=== PATIENT | male | born 1930 | race Hispanic/Latino ===

== ENCOUNTER 2018-05-18 17:30 | Inpatient (IN) | payer MEDICARE ==
[2018-05-18] MEDS ORDERED: Sodium Chloride 0.9% 1,000 ML IV STA (18:22)
[2018-05-18] MEDS ORDERED: Iohexol 300 100 ML IJ ONE (18:27)
[2018-05-18] MEDS ORDERED: Sodium Chloride 0.9% 50 ML IV ONE (18:27)
--- NOTE | 2018-05-18 18:33 | ED PDOC ---
HPI: General Adult Time Seen by Provider: 05/18/18 17:43 Chief Complaint (Nursing): Weakness/Neurological Deficit Chief Complaint (Provider): Weight Loss History Per: Family History/Exam Limitations: no limitations Onset/Duration Of Symptoms: Days Current Symptoms Are (Timing): Still Present Additional Complaint(s): 87 y/o male with a PMHx of Arthritis accompanied by daughter brought in via EMS for evaluation of weight loss over the last couple months. Daughter reports patient was previously living at a [facility] in [place] where he fell on 04/24/2018 sustaining injuries to his hips, right side of his head, right hand and right eye. Patient has not walked since fall. Daughter states patient was not being offered the best care at that facility and had a decreased appetite. Daughter reports patient is relocating to the area for better care and to be close to her. Daughter states patient is eating less and less and has increasingly been become more and more confused. Patient reports of feeling constipated and feeling pain everywhere. However, patient reports pain is not new. Daughter reports last bowel movement was earlier today and appeared very dark. Of note, patient was seen by his PMD in [place] last week. PMD: none here. Current PMD in [place]. Past Medical History Reviewed: Historical Data, Nursing Documentation, Vital Signs Vital Signs: Last Vital Signs Temp 97.2 F L 05/18/18 17:34 Pulse 96 H 05/18/18 17:34 Resp 16 05/18/18 17:34 BP 114/74 05/18/18 17:34 Pulse Ox 97 05/18/18 17:34 - Medical History PMH: Arthritis, Chronic Pain - Surgical History Other surgeries: Hip surgery, Quadruple bypass - Family History Family History: States: Unknown Family Hx - Living Arrangements Living Arrangements: [facility] - Home Medications Home Medications: Ambulatory Orders Medication Instructions Recorded Ascorbic Acid [Vitamin C] 500 mg PO HS 05/19/18 Ferrous Sulfate [Feosol] 324 mg PO HS 05/19/18 Folic Acid 1 cap PO DAILY 05/19/18 Heparin 5,000 units SC Q12 vial 05/19/18 Lactulose [Enulose] 30 gm PO Q12 udc 05/19/18 Oxycodone HCl/Acetaminophen 1 each PO BID PRN 05/19/18 [Percocet 10-325 mg Tablet] Tamsulosin [Flomax] 1 cap PO HS 05/19/18 levETIRAcetam [Keppra] PO DAILY 05/19/18 traZODone [Desyrel] PO HS 05/19/18 - Allergies Allergies/Adverse Reactions: Allergies Allergy/AdvReac Type Severity Reaction Status Date / Time No Known Allergies Allergy Verified 05/18/18 17:38 Review of Systems ROS Statement: Except As Marked, All Systems Reviewed And Found Negative Constitutional: Positive for: Weight loss Gastrointestinal: Positive for: Constipation, Melena, Other (decreased appetite) Physical Exam - Reviewed Nursing Documentation Reviewed: Yes Vital Signs Reviewed: Yes - Physical Exam Appears: Positive for: No Acute Distress (cacchetic) Head Exam: Positive for: ATRAUMATIC Skin: Positive for: Normal Color, Warm Eye Exam: Positive for: Normal appearance Neck: Positive for: Normal, Painless ROM Cardiovascular/Chest: Negative for: Bradycardia, Tachycardia Respiratory: Negative for: Accessory Muscle Use, Respiratory Distress Gastrointestinal/Abdominal: Positive for: Tenderness (Bilateral lower quadrant tenderness) Extremity: Positive for: Normal ROM Neurologic/Psych: Positive for: Alert, Oriented (x1). Negative for: Motor/Sensory Deficits - Laboratory Results Result Diagrams: 05/22/18 04:20 05/22/18 04:20 - ECG O2 Sat by Pulse Oximetry: 97 (RA) Pulse Ox Interpretation: Normal Medical Decision Making Medical Decision Making: Time: 1821 Plan: -- CT Abd/Pelvis IV Contrast ONLY -- EKG -- CMP -- Lipase -- ED Urine Dipstick -- CBC with Differential -- PTT -- Prothrombin Time -- CXR Portable -- Sodium Chloride IV 90 mls/hr -- Glucose, Blood, POC -- Occult Blood, Stool, ER -- Urinalysis Scribe Attestation: Documented by Rebeka Xie, acting as a scribe for Haylie Bruner MD. Provider Scribe Attestation: All medical record entries made by the Scribe were at my direction and personally dictated by me. I have reviewed the chart and agree that the record accurately reflects my personal performance of the history, physical exam, medical decision making, and the department course for this patient. I have also personally directed, reviewed, and agree with the discharge instructions and di sposition. Disposition - Clinical Impression Clinical Impression: UTI (urinary tract infection), ARF (acute renal failure), Dehydration, Hyperkalemia, Compression fracture of lumbar vertebra - Disposition Disposition: Transfer of Care Disposition Time: 19:00 Condition: STABLE Patient Signed Over To: Augustin Cameron
[2018-05-18] MEDS ORDERED: Povidone Iodine Oint 10% Foilpak UD ONE (18:48)
[2018-05-18 19:07] LABS: BASO % 0.3 % (0.0-2.0); EOS # 0.1 K/uL (0.0-0.7); EOS % 0.6 % (0.0-4.0); HEMOGLOBIN 9.5 g/dL (12.0-18.0); LYMPH # 2.4 K/uL (1.0-4.3); LYMPH % 25.3 % (20.0-40.0); MEAN CELL VOLUME 92.3 fl (80.0-94.0); MEAN CORPUSCULAR HEMOGLOBIN 30.4 pg (27.0-31.0); MEAN CORPUSCULAR HGB CONC 32.9 g/dL (33.0-37.0); MEAN PLATELET VOLUME 6.8 fl (7.2-11.7); MONO # 0.9 K/uL (0.0-0.8); MONO % 9.7 % (0.0-10.0); NEUT # 6.2 K/uL (1.8-7.0); NEUT % 64.1 % (50.0-75.0); RBC 3.14 Mil/uL (4.40-5.90); WHITE BLOOD COUNT 9.7 K/uL (4.8-10.8)
[2018-05-18 19:20] LABS: SQUAMOUS EPITHIAL 1 /hpf (0-5); URINE BILIRUBIN NEGATIVE (NEGATIVE); URINE BLOOD SMALL (NEGATIVE); URINE CLARITY TURBID (Clear); URINE COLOR AMBER (YELLOW); URINE GLUCOSE (UA) NEG (NEGATIVE); URINE LEUKOCYTE ESTERASE LARGE Leu/uL (Negative); URINE PROTEIN 100 mg/dL (NEGATIVE); URINE UROBILINOGEN 0.2-1.0 mg/dL (0.2-1.0)
[2018-05-18 19:21] LABS: INR 1.1
[2018-05-18 19:22] LABS: CALCIUM 9.4 mg/dL (8.4-10.2)
[2018-05-18 19:27] LABS: PARTIAL THROMBOPLASTIN TIME 35.5 Seconds (25.6-37.1)
--- NOTE | 2018-05-18 19:30 | ED PDOC ---
- Laboratory Results Result Diagrams: 05/18/18 19:03 05/18/18 19:03 Lab Results: PT 12.0 Seconds (9.8-13.1) 05/18/18 19:03 INR 1.1 05/18/18 19:03 APTT 35.5 Seconds (25.6-37.1) 05/18/18 19:03 Total Bilirubin 0.3 mg/dl (0.2-1.3) 05/18/18 19:03 AST 26 U/L (17-59) 05/18/18 19:03 ALT 16 U/L (21-72) L 05/18/18 19:03 Alkaline Phosphatase 134 U/L (38-126) H 05/18/18 19:03 Total Protein 7.9 G/DL (6.3-8.2) 05/18/18 19: Albumin 4.0 g/dL (3.5-5.0) 05/18/18 19: Globulin 3.8 gm/dL (2.2-3.9) 05/18/18 19:03 Albumin/Globulin Ratio 1.0 (1.0-2.1) 05/18/18 19: Lipase 59 U/L (23-300) 05/18/18 19:03 Urine Color [place] (YELLOW) 05/18/18 19:03 Urine Clarity Turbid (Clear) 05/18/18 19:03 Urine pH 6.0 (5.0-8.0) 05/18/18 19:03 Ur Specific [place] 1.018 (1.003-1.030) 05/18/18 19:03 Urine Protein 100 mg/dL (NEGATIVE) 05/18/18 19:03 Urine Glucose (UA) Neg mg/dL (NEGATIVE) 05/18/18 19:03 Urine Ketones Trace mg/dL (NEGATIVE) 05/18/18 19:03 Urine Blood Small (NEGATIVE) 05/18/18 19:03 Urine Nitrate Negative (NEGATIVE) 05/18/18 19: Urine Bilirubin Negative (NEGATIVE) 05/18/18 19:03 Urine Urobilinogen 0.2-1.0 mg/dL (0.2-1.0) 05/18/18 19:03 Ur Leukocyte Esterase Large [place]/uL (Negative) 05/18/18 19:03 Urine RBC (Auto) 18 /hpf (0-3) H 05/18/18 19:03 Urine Microscopic WBC 805 /hpf (0-5) H 05/18/18 19:03 Ur Squamous Epith Cells 1 /hpf (0-5) 05/18/18 19:03 - ECG O2 Sat by Pulse Oximetry: 99 (RA) Pulse Ox Interpretation: Normal Medical Decision Making Medical Decision Making: Time: 1899 -- Patient endorsed to me by Dr. Bruner, pending labs, CT Abd/Pelvis, re- evaluation and final ER disposition. Time: 1943 Plan: -- cefTRIAXone 1 gm in NS (100 ml) Rocephin 1 gm Sodium Chloride 0.9% 100 ml IVPB -- Blood Culture -- Urine Culture Time: 2107 CT RESULTS COMMENTS: The liver is of uniform attenuation without mass or defect. There is no intra or extrahepatic biliary ductal dilatation. The spleen is normal. The gallb ladder is within normal limits. The pancreas is not well evaluated due to significant streak artifact. There is no evidence of adrenal mass. Diffuse vascular calcifications are present. The kidneys are normal in size, shape, and configuration. No renal or ureteral calculi are identified. There is no hydroureter or hydronephrosis. There are several cysts present in the right kidney measuring up to 15 mm. The appendix is not identified with certainty. No definite evidence of acute appendicitis. There is no bowel wall thickening. There is a large amount of fecal material seen throughout he colon, especially rectosigmoid, consistent with fecal impaction. No evidence for small or large bowel obstruction. There is no evidence of abdominal ascites or lymphadenopathy. The urinary bladder is not fully distended. There is apparent urinary bladder wall thickening measuring up to 6 mm, which may be due to bladder outlet obstruction versus cystitis. There is no pelvic ascites or lymphadenopathy. The prostate gland is severely enlarged, producing mass effect on the bladder base. Please correlate with PSA levels. The heart is enlarged. Patchy opacities are noted at the right lung base, which may represent developing pneumonia versus atelectasis. Scarring is seen in the right middle lobe and lingula. Images of the lung bases show no evidence of pleural or parenchymal mass. There are no pleural effusions. The patient is status post left femoral ORIF. Moderate degenerative changes are present at both hip joints. There is grade-1 anterolisthesis of L4 over L5. There is moderate anterior wedging compression fracture deformity noted involving L1 vertebral body. IMPRESSION: 1. Limited study as above. 2. Fecal impaction. 3. Several right renal cysts. 4. Urinary bladder outlet obstruction versus cystitis. 5. Severely enlarged prostate gland producing mass effect on the bladder base. Please correlate with PSA levels. 7. Cardiomegaly with possible right lung base developing pneumonia versus atelectasis and scarring in the right middle lobe and lingula. 8. Moderate anterior wedging compression fracture deformity involving L1 vertebral body. Electronically signed on May 18, 2018 9:07:08 PM EST by: Yury Edmond M.D., DARIUS Certified By [facility] [facility] Trained MRI and CT Specialist Scribe Attestation: Documented by Rebeka Xie, acting as a scribe for Augustin Cameron MD. Provider Scribe Attestation: All medical record entries made by the Scribe were at my direction and personally dictated by me. I have reviewed the chart and agree that the record accurately reflects my personal performance of the history, physical exam, medic al decision making, and the department course for this patient. I have also personally directed, reviewed, and agree with the discharge instructions and disposition. Disposition Discussed With Dr.: Del Rodriguez Doctor Will See Patient In The: Hospital Counseled Patient/Family Regarding: Studies Performed, Diagnosis - Clinical Impression Clinical Impression: UTI (urinary tract infection), ARF (acute renal failure), Dehydration, Hyperkalemia, Compression fracture of lumbar vertebra - POA Present On Arrival: None - Disposition Disposition: Admitted as In-Patient Disposition Time: 22:29 Condition: FAIR
[2018-05-18] MEDS ORDERED: cefTRIAXone (Rocephin) 1 gm Inj ONE (20:57)
[2018-05-18] MEDS ORDERED: Dextrose 50% SYRINGE Inj (50 ml) IVP ONE (22:05)
[2018-05-18] MEDS ORDERED: Albuterol 0.083% Inhal Sol (2.5 mg/3 mL) UD INH STA (22:05)
[2018-05-18] MEDS ORDERED: Insulin Regular 100 units/ml IV STA (22:05)
[2018-05-18] MEDS ORDERED: Insulin Regular 100 units/ml ONE ×2 (22:24→22:27)
[2018-05-18] MEDS ORDERED: Dextrose 50% SYRINGE Inj (50 ml) ONE (22:24)
[2018-05-18] MEDS ORDERED: Albuterol 0.083% Inhal Sol (2.5 mg/3 mL) UD ONE (22:25)
[2018-05-19] MEDS: Sodium Chloride 0.9% 1,000 ML IV SCH ×2 (06:58→22:00)
[2018-05-19 07:46] LABS: HEMOGLOBIN 9.8 g/dL (12.0-18.0); MEAN CELL VOLUME 93.6 fl (80.0-94.0); MEAN CORPUSCULAR HEMOGLOBIN 30.2 pg (27.0-31.0); MEAN CORPUSCULAR HGB CONC 32.3 g/dL (33.0-37.0); RBC 3.25 Mil/uL (4.40-5.90); RED CELL DISTRIBUTION WIDTH 16.9 % (11.5-14.5); WHITE BLOOD COUNT 11.3 K/uL (4.8-10.8)
[2018-05-19 07:50] LABS: ALB/GLOB RATIO 1.1 (1.0-2.1); ALBUMIN 4.1 g/dL (3.5-5.0); CALCIUM 9.5 mg/dL (8.4-10.2)
--- NOTE | 2018-05-19 09:48 | CT ---
Date of service: 05/18/2018 PROCEDURE: CT HEAD WITHOUT CONTRAST. HISTORY: Recent [facility] follow up COMPARISON: None available. TECHNIQUE: Axial computed tomography images were obtained through the head/brain without intravenous contrast. Radiation dose: Total exam DLP = 1813.23 mGy-cm. This CT exam was performed using one or more of the following dose reduction techniques: Automated exposure control, adjustment of the mA and/or kV according to patient size, and/or use of iterative reconstruction technique. FINDINGS: HEMORRHAGE: There are large left and moderate right-sided bilateral hypodense subdural collections right-side which exhibits a higher density compared to the left. 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 The collections exert mass effect and compression of both cerebral hemispheres more so on the left side.. The mass effect produced by these collections are nearly offsetting with only minimal shift of the septum pellucidum from left to right BRAIN: Mild to moderate chronic periventricular white matter ischemic changes seen extending peripherally into the deep and subcortical white matter both cerebral hemispheres.. Additionally, there are scattered chronic appearing bilateral basal nuclei lacunar type infarcts. Moderate-fairly significant generalized volume loss Vascular calcifications both carotid siphons and left vertebral artery. VENTRICLES: No obstructive hydrocephalus. CALVARIUM: No acute calvarial fractures so far as can be seen PARANASAL SINUSES: Minor mucosal thickening seen within both maxillary antra MASTOID AIR CELLS: Unremarkable as visualized. No inflammatory changes. OTHER FINDINGS: Changes of bilateral cataract surgery. IMPRESSION: There are large left-sided and moderate right-sided hypodense subdural collections left-sided which exhibits more hypodense appearance likely more chronic than the right. These collections exert mild moderate mass-effect on both cerebral hemispheres with sulcal effacement... The mass effect produced by these collections is nearly offsetting with only minimal shift of the septum pellucidum from left to right. Moderate chronic white matter ischemic changes Moderate- significant generalized volume loss
--- NOTE | 2018-05-19 14:32 | CT ---
Date of service: 05/18/2018 PROCEDURE: CT Abdomen and Pelvis HISTORY: BLQ pain COMPARISON: None. TECHNIQUE: Contiguous axial images of the abdomen and pelvis performed without oral or intravenous contrast material. Additional 2D sagittal and coronal reformats generated. Radiation dose: Total exam DLP = 375.85 mGy-cm. This CT exam was performed using one or more of the following dose reduction techniques: Automated exposure control, adjustment of the mA and/or kV according to patient size, and/or use of iterative reconstruction technique. FINDINGS: Note that this examination is limited by the lack of oral and intravenous contrast material as well as significant paucity of intraperitoneal and retroperitoneal fat (cachexia).. Note that the study is further limited due to crossing streak and beam hardening artifact arising from the upper extremities which have not been moved from the field of view. LOWER THORAX: Heart is mildly enlarged. The cardiac apex appears to protrude anteriorly slightly through a left lower anterior intracostal space likely due to marked cachexia.. Follow-up contrast enhanced CT scan of the chest could be performed if further evaluation is required. There appears to be chronic manifestations of COPD. Mild chronic appearing interstitial changes right lung base as well as right middle lobe region. Minimal scarring left lingular region.. There is also a pleural based nodular density right posterior medial lung base measuring 13 mm. Follow-up CT scan of the chest further evaluation and to assess for additional nodules recommended LIVER: The liver is mildly enlarged measuring over 20 cm in CC dimension.. No obvious hepatic masses collections seen on this limited noncontrast exam. GALLBLADDER AND BILE DUCTS: Gallbladder appears moderately distended. No obvious intraluminal gallbladder calculi.. PANCREAS: Pancreas is poorly delineated on this exam. SPLEEN: Spleen appears borderline/mildly enlarged measuring approximately 13 cm in AP dimension. No obvious splenic mass or collection. ADRENALS: Adrenal glands poorly delineated KIDNEYS AND URETERS: Kidneys are poorly visualized however there does appear to be at least 2 partially exophytic cysts posterolateral aspect midpole right kidney. BLADDER: Urinary bladder is partially distended which in part accounts for mild thick-walled appearance. Muscular hypertrophy presumably contributes. Cystitis or other intrinsic/invasive wall lesion not excluded.. REPRODUCTIVE: Prostate gland measures approximately 5.7 cm in transverse dimension.. Findings likely due to BPH however correlation with PSA recommended. APPENDIX: Appendix is not seen with certainty on this study BOWEL: Evaluation of the bowel is limited due to marked paucity of intraperitoneal and retroperitoneal fat reducing inherent contrast detail. The stomach appears to be partially distended with food debris and air. The no evidence of acute mechanical bowel obstruction so far as can be seen. Large amount of stool seen throughout the colon particularly in the rectosigmoid region consistent with fecal impaction. The PERITONEUM: No gross fluid collections or free intraperitoneal air. LYMPH NODES: Evaluation for adenopathy quite limited.. VASCULATURE: Unremarkable. No aortic aneurysm. Mild aortic atherosclerotic calcification or mural plaque present. BONES: Chronic anterior wedge compression deformity of the L1 segment. The remaining vertebral bodies otherwise exhibit relatively normal stature. Slight anterior subluxation L4 over L5. Moderate multilevel degenerative spondylosis. There is a metallic compression screw traversing the left femoral neck which is stabilized by intramedullary fixation jazmyn left femur. OTHER FINDINGS: None. IMPRESSION: Very limited study the due to the lack of oral contrast material marked cachexia as well as crossing streak and beam hardening artifact arising from the upper extremities which have not been moved from the field of view. The apex of the heart appears to partially protrude anteriorly through an left anterior intercostal space likely due to marked cachexia.. Probable chronic manifestations of COPD. There is also a small approximately 13 mm pleural-based nodule right posteromedial lower lung field. Probable chronic manifestations of COPD. Recommend follow-up CT scan of the chest further evaluation. There are least 2 right-sided renal cysts as above. Wall thickening of the urinary bladder in part due to incomplete distention and muscular hypertrophy however cystitis or other intrinsic/invasive wall lesion not excluded. Follow-up with urinalysis recommended. Enlarged prostate gland likely due to BPH however correlation with PSA recommended. Hepatomegaly. Findings consistent with fecal impaction. This report was placed in [facility] review folder for follow up.
--- NOTE | 2018-05-19 16:14 | RAD ---
Date of service: 05/18/2018 HISTORY: FTT COMPARISON: No prior. FINDINGS: LUNGS: There appear to be chronic manifestations of COPD. No focal consolidation. PLEURA: No significant pleural effusion identified, no pneumothorax apparent. CARDIOVASCULAR: Mild aortic atherosclerotic calcification present. Heart appears mildly enlarged. No pulmonary vascular congestion. OSSEOUS STRUCTURES: Suspect old healed fracture deformities of the 5th and 6th ribs. VISUALIZED UPPER ABDOMEN: Normal. OTHER FINDINGS: None. IMPRESSION: There appear to be chronic manifestations of COPD. No focal consolidation. .
--- NOTE | 2018-05-19 16:19 | CP.PCM.CON ---
History of Present Illness - History of Present Illness History of Present Illness: Infectious Disease Consultation Note- asked to see this patient at the request of for ? UTI. HPI- history obtained from the patient's daughter who is at [facility]. Patient is a 87 year old male with h/o CAD s/p CABG many years ago and arthritis who was living at custodial home in [place] but apparently pt. had sustained falls there with injuries to his hip, right side of the head, arm and face and Patient has not walked since fall. Daughter states patient was not being offered the best care at that facility and had a decreased appetite. Daughter reports patient is relocating to the area for better care and to be close to her. Daughter states patient is eating less and less and has increasingly been become more and more confused. Patient reports of feeling constipated and feeling pain everywhere. However, patient reports pain is not new. as per patient's daughter pt. does have h/o osteoarthritis and had been on oxycodone for a while and has developed painful constipation as a sequeala of the pain meds and not drinking enough fluids . Pt. has not reported any dysurea or urinary frequencey. no fever or chills. I'm asked to see the patietn because he was noted to have pos LE on admission UA. Review of Systems - Review of Systems Review of Systems: ROS- denies any fever or chills, denies any cough or sob, denies any chets pain, denies any nausea or vomniting, + constipation chrnically and abdominal pian from the constipation denies any urinary frequency and denies any dysurea. Past Patient History - Past Medical History & Family History Past Medical History?: No - Past Social History Smoking Status: Former Smoker Home Situation {Lives}: Long-Term - CARDIAC Hx Cardiac Disorders: Yes Hx Hypertension: Yes Other/Comment: Open heart 4 years ago - PULMONARY Hx Respiratory Disorders: No - NEUROLOGICAL Hx Neurological Disorder: No - HEENT Hx HEENT Problems: No - RENAL Hx Chronic Kidney Disease: No - ENDOCRINE/METABOLIC Hx Endocrine Disorders: No - HEMATOLOGICAL/ONCOLOGICAL Hx Blood Disorders: No - INTEGUMENTARY Hx Dermatological Problems: No - MUSCULOSKELETAL/RHEUMATOLOGICAL Hx Musculoskeletal Disorders: Yes Hx Arthritis: Yes Hx Falls: Yes - GASTROINTESTINAL Hx Gastrointestinal Disorders: No - GENITOURINARY/GYNECOLOGICAL Hx Genitourinary Disorders: No - PSYCHIATRIC Hx Psychophysiologic Disorder: No Hx Substance Use: No - SURGICAL HISTORY Hx Surgeries: Yes Hx Open Heart Surgery: Yes - ANESTHESIA Hx Anesthesia: Yes Hx Anesthesia Reactions: No Hx Malignant Hyperthermia: No Has any member of the family had a problem w/ anesthesia?: No Meds Home Medications: Home Medication List Medication Instructions Recorded Confirmed Type Heparin 5,000 units SC Q12 vial 05/19/18 Rx Lactulose [Enulose] 30 gm PO Q12 udc 05/19/18 Rx Allergies/Adverse Reactions: Allergies Allergy/AdvReac Type Severity Reaction Status Date / Time No Known Allergies Allergy Verified 05/18/18 17:38 - Medications Medications: Current Medications Ascorbic Acid (Vitamin C 500 Mg Tab) 500 mg PO HS [facility] Ferrous Sulfate (Feosol) 325 mg PO HS [facility] Folic Acid (Folic Acid) 1 mg PO DAILY [facility] Last Admin: 05/19/18 09:06 Dose: 1 mg Sodium Chloride (Sodium Chloride 0.9%) 1,000 mls @ 100 mls/hr IV .Q10H [facility] Stop: 05/20/18 06:31 Last Admin: 05/19/18 06:58 Dose: 100 mls/hr Ceftriaxone Sodium 1 gm/ (Sodium Chloride) 100 mls @ 100 mls/hr IVPB Q12@0900,2100 [facility]; Protocol Last Admin: 05/19/18 09:10 Dose: 100 mls/hr Lactulose (Enulose) 20 gm PO Q12 [facility] Last Admin: 05/19/18 09:05 Dose: 20 gm Levetiracetam (Keppra) 250 mg PO DAILY [facility] Last Admin: 05/19/18 09:09 Dose: 250 mg Mirtazapine (Remeron) 15 mg PO HS [facility] Tamsulosin HCl (Flomax) 0.4 mg PO HS [facility] Physical Exam - Constitutional Appears: No Acute Distress, Cachectic, Chronically Ill - Eye Exam Eye Exam: EOMI, PERRL - ENT Exam Additional comments: dry oropharynx - Neck Exam Neck exam: Positive for: Full Rom - Respiratory Exam Respiratory Exam: Clear to Auscultation Bilateral, NORMAL BREATHING PATTERN - Cardiovascular Exam Cardiovascular Exam: RRR, +S1, +S2 - GI/Abdominal Exam GI & Abdominal Exam: Normal Bowel Sounds, Soft Additional comments: No distention + mild tenderness with palpation in the lower abdomen No guarding, no rebound - Extremities Exam Extremities exam: Positive for: normal inspection - Neurological Exam Neurological exam: Alert, Oriented x3 Results - Vital Signs Recent Vital Signs: Last Vital Signs Temp 97.6 F 05/19/18 16:07 Pulse 115 H 05/19/18 16:07 Resp 18 05/19/18 16:07 BP 92/63 L 05/19/18 16:07 Pulse Ox 98 05/19/18 16:07 - Labs Result Diagrams: 05/19/18 06:15 05/19/18 06:15 Labs: Laboratory Results - last 24 hr 05/18/18 05/18/18 05/18/18 18:32 19:03 19:03 WBC 9.7 RBC 3.14 L Hgb 9.5 L Hct 29.0 L MCV 92.3 MCH 30.4 MCHC 32.9 L RDW 17.0 H Plt Count 172 MPV 6.8 L Neut % (Auto) 64.1 Lymph % (Auto) 25.3 [place] % (Auto) 9.7 Eos % (Auto) 0.6 Baso % (Auto) 0.3 Neut # (Auto) 6.2 Lymph # (Auto) 2.4 [place] # (Auto) 0.9 H Eos # (Auto) 0.1 Baso # (Auto) 0.0 PT INR APTT Sodium 138 Potassium 5.7 H Chloride 101 Carbon Dioxide 24 Anion Gap 19 BUN 74 H Creatinine 1.9 H Est GFR ( Amer) 41 Est GFR (Non-Af Amer) 34 Random Glucose 104 Calcium 9.4 Total Bilirubin 0.3 AST 26 ALT 16 L Alkaline Phosphatase 134 H Total Protein 7.9 Albumin 4.0 Globulin 3.8 Albumin/Globulin Ratio 1.0 Lipase 59 Vitamin B12 TSH 3rd Generation Urine Color Urine Clarity Urine pH Ur Specific [place] Urine Protein Urine Glucose (UA) Urine Ketones Urine Blood Urine Nitrate Urine Bilirubin Urine Urobilinogen Ur Leukocyte Esterase Urine RBC (Auto) Urine Microscopic WBC Ur Squamous Epith Cells Stool Occult Blood Negative 05/18/18 05/18/18 05/19/18 19:03 19:03 06:15 WBC 11.3 H RBC 3.25 L Hgb 9.8 L Hct 30.4 L MCV 93.6 MCH 30.2 MCHC 32.3 L RDW 16.9 H Plt Count 187 MPV Neut % (Auto) Lymph % (Auto) [place] % (Auto) Eos % (Auto) Baso % (Auto) Neut # (Auto) Lymph # (Auto) [place] # (Auto) Eos # (Auto) Baso # (Auto) PT 12.0 INR 1.1 APTT 35.5 Sodium Potassium Chloride Carbon Dioxide Anion Gap BUN Creatinine Est GFR ( Amer) Est GFR (Non-Af Amer) Random Glucose Calcium Total Bilirubin AST ALT Alkaline Phosphatase Total Protein Albumin Globulin Albumin/Globulin Ratio Lipase Vitamin B12 TSH 3rd Generation Urine Color [place] Urine Clarity Turbid Urine pH 6.0 Ur Specific [place] 1.018 Urine Protein 100 Urine Glucose (UA) Neg Urine Ketones Trace Urine Blood Small Urine Nitrate Negative Urine Bilirubin Negative Urine Urobilinogen 0.2-1.0 Ur Leukocyte Esterase Large Urine RBC (Auto) 18 H Urine Microscopic WBC 805 H Ur Squamous Epith Cells 1 Stool Occult Blood 05/19/18 06:15 WBC RBC Hgb Hct MCV MCH MCHC RDW Plt Count MPV Neut % (Auto) Lymph % (Auto) [place] % (Auto) Eos % (Auto) Baso % (Auto) Neut # (Auto) Lymph # (Auto) [place] # (Auto) Eos # (Auto) Baso # (Auto) PT INR APTT Sodium 136 Potassium 5.4 H Chloride 102 Carbon Dioxide 22 Anion Gap 17 BUN 74 H Creatinine 1.7 H Est GFR ( Amer) 46 Est GFR (Non-Af Amer) 38 Random Glucose 119 H Calcium 9.5 Total Bilirubin 0.3 AST 23 ALT 18 L Alkaline Phosphatase 142 H Total Protein 7.9 Albumin 4.1 Globulin 3.8 Albumin/Globulin Ratio 1.1 Lipase Vitamin B12 620 TSH 3rd Generation 2.22 Urine Color Urine Clarity Urine pH Ur Specific [place] Urine Protein Urine Glucose (UA) Urine Ketones Urine Blood Urine Nitrate Urine Bilirubin Urine Urobilinogen Ur Leukocyte Esterase Urine RBC (Auto) Urine Microscopic WBC Ur Squamous Epith Cells Stool Occult Blood Microbiology 05/19/18 09:46 Urine,Catheterized Urine Culture - Preliminary Staphylococcus Aureus Assessment & Plan (1) Cachexia Status: Acute Priority: High (2) Dehydration Status: Acute Priority: Medium (3) Poor appetite Status: Acute Priority: High (4) UTI (urinary tract infection) Status: Acute Priority: Medium - Assessment and Plan (Free Text) Assessment: A/P- 87 year old male with CAD s/p CABG many years ago and arthritis presents with dehydration, poor appetite, wekaness s/p falls in [place] and subdural hematomas as per CT report . found to also have + UA with minimal leukocytosis. no UTI symptoms but as per CT report ? cystitis and enlarged prostate making prostatitis a possibility as well. afebrile contipation chronic. PLan- advise to continue with empiric ceftriaxone that was initiated bty the admitting doctor for UTI pending Urine cx result. check blood cx x2 as well. IV hydration as per PMD . constipation management as per PMD. All labs and pertinent chart notes and imaging reviewed. All above d/w patient and his daughter and they agree with above plan of care. Thank you for allowing me to take part in the care of this patient.
--- NOTE | 2018-05-19 16:22 | CP.PCM.HP ---
History of Present Illness - History of Present Illness History of Present Illness: CC: Poor Feeding and Loss of Weight History of present illness Daughter (POA) and son-in-law at the bedside, and reviewed the medical record from another hospital And 87 y/o male with a Hx of falls with bilateral subdural hematoma, left more than right which is present on admission; Arthritis and Cachexia accompanied by daughter brought in via EMS for evaluation of weight loss over the last couple months. Daughter reports patient was previously living at a [facility] in [place] where he fell on 04/24/2018 sustaining injuries to his hips, right side of his head, right hand and right eye. Patient has not walked since fall. Daughter states patient was not being offered the best care at that facility and had a decreased appetite. Daughter reports patient is relocating to the area for better care and to be close to her. Daughter states patient is eating less and less and has increasingly been become more and more confused. Patient reports of feeling constipated and feeling pain everywhere. However, patient reports pain is not new. Daughter reports last bowel movement was earlier today and appeared very dark. Of note, patient was seen by his PMD in [place] last week. Patient is on Keppra for seizure prophylaxis. Discussed the CODE STATUS with POA who wanted everything to be done including intubation and CPR. Present on Admission - Present on Admission Any Indicators Present on Admission: No Review of Systems - Review of Systems All systems: reviewed and no additional remarkable complaints except Review of Systems: As per HPI Past Patient History - Past Medical History & Family History Past Medical History?: No Past Family History: Reviewed and not pertinent - Past Social History Smoking Status: Former Smoker Alcohol: None Drugs: Denies - CARDIAC Hx Cardiac Disorders: Yes Hx Hypertension: Yes Other/Comment: Open heart 4 years ago - PULMONARY Hx Respiratory Disorders: No - NEUROLOGICAL Hx Neurological Disorder: No - HEENT Hx HEENT Problems: No - RENAL Hx Chronic Kidney Disease: No - ENDOCRINE/METABOLIC Hx Endocrine Disorders: No - HEMATOLOGICAL/ONCOLOGICAL Hx Blood Disorders: No - INTEGUMENTARY Hx Dermatological Problems: No - MUSCULOSKELETAL/RHEUMATOLOGICAL Hx Musculoskeletal Disorders: Yes Hx Arthritis: Yes Hx Falls: Yes - GASTROINTESTINAL Hx Gastrointestinal Disorders: No - GENITOURINARY/GYNECOLOGICAL Hx Genitourinary Disorders: No - PSYCHIATRIC Hx Psychophysiologic Disorder: No Hx Substance Use: No - SURGICAL HISTORY Hx Surgeries: Yes Hx Open Heart Surgery: Yes - ANESTHESIA Hx Anesthesia: Yes Hx Anesthesia Reactions: No Hx Malignant Hyperthermia: No Has any member of the family had a problem w/ anesthesia?: No Meds Home Medications: Home Medication List Medication Instructions Recorded Confirmed Type Heparin 5,000 units SC Q12 vial 05/19/18 Rx Lactulose [Enulose] 30 gm PO Q12 udc 05/19/18 Rx Allergies/Adverse Reactions: Allergies Allergy/AdvReac Type Severity Reaction Status Date / Time No Known Allergies Allergy Verified 05/18/18 17:38 Physical Exam - Constitutional Appears: Non-toxic, No Acute Distress, Agitated, Confused, Cachectic, Chronically Ill - Head Exam Head Exam: ATRAUMATIC, NORMAL INSPECTION, NORMOCEPHALIC - Eye Exam Eye Exam: EOMI, Normal appearance, PERRL Pupil Exam: NORMAL ACCOMODATION, PERRL - ENT Exam ENT Exam: Mucous Membranes Moist, Normal Exam - Neck Exam Neck exam: Positive for: Normal Inspection - Respiratory Exam Respiratory Exam: Clear to Auscultation Bilateral, NORMAL BREATHING PATTERN. absent: Rales - Cardiovascular Exam Cardiovascular Exam: REGULAR RHYTHM, +S1, +S2 - GI/Abdominal Exam GI & Abdominal Exam: Normal Bowel Sounds, Soft. absent: Tenderness - Extremities Exam Extremities exam: Positive for: normal capillary refill, normal inspection - Neurological Exam Neurological exam: Abnormal Gait, Alert, Motor Sensory Deficit, Normal Gait, Reflexes Normal - Psychiatric Exam Psychiatric exam: Flat Affect - Skin Skin Exam: Dry, Intact, Normal Color, Warm Results - Vital Signs Recent Vital Signs: Last Vital Signs Temp 97.6 F 05/19/18 16:07 Pulse 115 H 05/19/18 16:07 Resp 18 05/19/18 16:07 BP 92/63 L 05/19/18 16:07 Pulse Ox 98 05/19/18 16:07 - Labs Result Diagrams: 05/24/18 04:25 05/24/18 04:25 Labs: Laboratory Results - last 24 hr 05/18/18 05/18/18 05/18/18 18:32 19:03 19:03 WBC 9.7 RBC 3.14 L Hgb 9.5 L Hct 29.0 L MCV 92.3 MCH 30.4 MCHC 32.9 L RDW 17.0 H Plt Count 172 MPV 6.8 L Neut % (Auto) 64.1 Lymph % (Auto) 25.3 [place] % (Auto) 9.7 Eos % (Auto) 0.6 Baso % (Auto) 0.3 Neut # (Auto) 6.2 Lymph # (Auto) 2.4 [place] # (Auto) 0.9 H Eos # (Auto) 0.1 Baso # (Auto) 0.0 PT INR APTT Sodium 138 Potassium 5.7 H Chloride 101 Carbon Dioxide 24 Anion Gap 19 BUN 74 H Creatinine 1.9 H Est GFR ( Amer) 41 Est GFR (Non-Af Amer) 34 Random Glucose 104 Calcium 9.4 Total Bilirubin 0.3 AST 26 ALT 16 L Alkaline Phosphatase 134 H Total Protein 7.9 Albumin 4.0 Globulin 3.8 Albumin/Globulin Ratio 1.0 Lipase 59 Vitamin B12 TSH 3rd Generation Urine Color Urine Clarity Urine pH Ur Specific [place] Urine Protein Urine Glucose (UA) Urine Ketones Urine Blood Urine Nitrate Urine Bilirubin Urine Urobilinogen Ur Leukocyte Esterase Urine RBC (Auto) Urine Microscopic WBC Ur Squamous Epith Cells Stool Occult Blood Negative 05/18/18 05/18/18 05/19/18 19:03 19:03 06:15 WBC 11.3 H RBC 3.25 L Hgb 9.8 L Hct 30.4 L MCV 93.6 MCH 30.2 MCHC 32.3 L RDW 16.9 H Plt Count 187 MPV Neut % (Auto) Lymph % (Auto) [place] % (Auto) Eos % (Auto) Baso % (Auto) Neut # (Auto) Lymph # (Auto) [place] # (Auto) Eos # (Auto) Baso # (Auto) PT 12.0 INR 1.1 APTT 35.5 Sodium Potassium Chloride Carbon Dioxide Anion Gap BUN Creatinine Est GFR ( Amer) Est GFR (Non-Af Amer) Random Glucose Calcium Total Bilirubin AST ALT Alkaline Phosphatase Total Protein Albumin Globulin Albumin/Globulin Ratio Lipase Vitamin B12 TSH 3rd Generation Urine Color [place] Urine Clarity Turbid Urine pH 6.0 Ur Specific [place] 1.018 Urine Protein 100 Urine Glucose (UA) Neg Urine Ketones Trace Urine Blood Small Urine Nitrate Negative Urine Bilirubin Negative Urine Urobilinogen 0.2-1.0 Ur Leukocyte Esterase Large Urine RBC (Auto) 18 H Urine Microscopic WBC 805 H Ur Squamous Epith Cells 1 Stool Occult Blood 05/19/18 06:15 WBC RBC Hgb Hct MCV MCH MCHC RDW Plt Count MPV Neut % (Auto) Lymph % (Auto) [place] % (Auto) Eos % (Auto) Baso % (Auto) Neut # (Auto) Lymph # (Auto) [place] # (Auto) Eos # (Auto) Baso # (Auto) PT INR APTT Sodium 136 Potassium 5.4 H Chloride 102 Carbon Dioxide 22 Anion Gap 17 BUN 74 H Creatinine 1.7 H Est GFR ( Amer) 46 Est GFR (Non-Af Amer) 38 Random Glucose 119 H Calcium 9.5 Total Bilirubin 0.3 AST 23 ALT 18 L Alkaline Phosphatase 142 H Total Protein 7.9 Albumin 4.1 Globulin 3.8 Albumin/Globulin Ratio 1.1 Lipase Vitamin B12 620 TSH 3rd Generation 2.22 Urine Color Urine Clarity Urine pH Ur Specific [place] Urine Protein Urine Glucose (UA) Urine Ketones Urine Blood Urine Nitrate Urine Bilirubin Urine Urobilinogen Ur Leukocyte Esterase Urine RBC (Auto) Urine Microscopic WBC Ur Squamous Epith Cells Stool Occult Blood - Imaging and Cardiology CT scan - head Status: Report reviewed by me Additional comment: Date of service: 05/18/2018 PROCEDURE: CT HEAD WITHOUT CONTRAST. HISTORY: Recent [facility] follow up COMPARISON: None available. TECHNIQUE: Axial computed tomography images were obtained through the head/brain without intravenous contrast. Radiation dose: Total exam DLP = 1813.23 mGy-cm. This CT exam was performed using one or more of the following dose reduction techniques: Automated exposure control, adjustment of the mA and/or kV according to patient size, and/or use of iterative reconstruction technique. FINDINGS: HEMORRHAGE: There are large left and moderate right-sided bilateral hypodense subdural collections right-side which exhibits a higher density compared to the left. 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 The collections exert mass effect and compression of both cerebral hemispheres more so on the left side.. The mass effect produced by these collections are nearly offsetting with only minimal shift of the septum pellucidum from left to right BRAIN: Mild to moderate chronic periventricular white matter ischemic changes seen extending peripherally into the deep and subcortical white matter both cerebral hemispheres.. Additionally, there are scattered chronic appearing bilateral basal nuclei lacunar type infarcts. Moderate-fairly significant generalized volume loss Vascular calcifications both carotid siphons and left vertebral artery. VENTRICLES: No obstructive hydrocephalus. CALVARIUM: No acute calvarial fractures so far as can be seen PARANASAL SINUSES: Minor mucosal thickening seen within both maxillary antra MASTOID AIR CELLS: Unremarkable as visualized. No inflammatory changes. OTHER FINDINGS: Changes of bilateral cataract surgery. IMPRESSION: There are large left-sided and moderate right-sided hypodense subdural collections left-sided which exhibits more hypodense appearance likely more chronic than the right. These collections exert mild moderate mass-effect on both cerebral hemispheres with sulcal effacement... The mass effect produced by these collections is nearly offsetting with only minimal shift of the septum pellucidum from left to right. Moderate chronic white matter ischemic changes Moderate- significant generalized volume loss Abdominal/Pelvic CT: Status: Report reviewed by me Additional comment: Date of service: 05/18/2018 PROCEDURE: CT Abdomen and Pelvis HISTORY: BLQ pain COMPARISON: None. TECHNIQUE: Contiguous axial images of the abdomen and pelvis performed without oral or intravenous contrast material. Additional 2D sagittal and coronal reformats generated. Radiation dose: Total exam DLP = 375.85 mGy-cm. This CT exam was performed using one or more of the following dose reduction techniques: Automated exposure control, adjustment of the mA and/or kV according to patient size, and/or use of iterative reconstruction technique. FINDINGS: Note that this examination is limited by the lack of oral and intravenous contrast material as well as significant paucity of intraperitoneal and retroperitoneal fat (cachexia).. Note that the study is further limited due to crossing streak and beam hardening artifact arising from the upper extremities which have not been moved from the field of view. LOWER THORAX: Heart is mildly enlarged. The cardiac apex appears to protrude anteriorly slightly through a left lower anterior intracostal space likely due to marked cachexia.. Follow-up contrast enhanced CT scan of the chest could be performed if further evaluation is required. There appears to be chronic manifestations of COPD. Mild chronic appearing interstitial changes right lung base as well as right middle lobe region. Minimal scarring left lingular region.. There is also a pleural based nodular density right posterior medial lung base measuring 13 mm. Follow-up CT scan of the chest further evaluation and to assess for additional nodules recommended LIVER: The liver is mildly enlarged measuring over 20 cm in CC dimension.. No obvious hepatic masses collections seen on this limited noncontrast exam. GALLBLADDER AND BILE DUCTS: Gallbladder appears moderately distended. No obvious intraluminal gallbladder calculi.. PANCREAS: Pancreas is poorly delineated on this exam. SPLEEN: Spleen appears borderline/mildly enlarged measuring approximately 13 cm in AP dimension. No obvious splenic mass or collection. ADRENALS: Adrenal glands poorly delineated KIDNEYS AND URETERS: Kidneys are poorly visualized however there does appear to be at least 2 p artially exophytic cysts posterolateral aspect midpole right kidney. BLADDER: Urinary bladder is partially distended which in part accounts for mild thick- walled appearance. Muscular hypertrophy presumably contributes. Cystitis or other intrinsic/invasive wall lesion not excluded.. REPRODUCTIVE: Prostate gland measures approximately 5.7 cm in transverse dimension.. Findings likely due to BPH however correlation with PSA recommended. APPENDIX: Appendix is not seen with certainty on this study BOWEL: Evaluation of the bowel is limited due to marked paucity of intraperitoneal and retroperitoneal fat reducing inherent contrast detail. The stomach appears to be partially distended with food debris and air. The no evidence of acute mechanical bowel obstruction so far as can be seen. Large amount of stool seen throughout the colon particularly in the rectosigmoid region consistent with fecal impaction. The PERITONEUM: No gross fluid collections or free intraperitoneal air. LYMPH NODES: Evaluation for adenopathy quite limited.. VASCULATURE: Unremarkable. No aortic aneurysm. Mild aortic atherosclerotic calcification or mural plaque present. BONES: Chronic anterior wedge compression deformity of the L1 segment. The remaining vertebral bodies otherwise exhibit relatively normal stature. Slight anterior subluxation L4 over L5. Moderate multilevel degenerative spondylosis. There is a metallic compression screw traversing the left femoral neck which is stabilized by intramedullary fixation jazmyn left femur. OTHER FINDINGS: None. IMPRESSION: Very limited study the due to the lack of oral contrast material marked cachexia as well as crossing streak and beam hardening artifact arising from the upper extremities which have not been moved from the field of view. The apex of the heart appears to partially protrude anteriorly through an left anterior intercostal space likely due to marked cachexia.. Probable chronic manifestations of COPD. There is also a small approximately 13 mm pleural-based nodule right posteromedial lower lung field. Probable chronic manifestations of COPD. Recommend follow-up CT scan of the chest further evaluation. There are least 2 right-sided renal cysts as above. Wall thickening of the urinary bladder in part due to incomplete distention and muscular hypertrophy however cystitis or other intrinsic/invasive wall lesion not excluded. Follow- up with urinalysis recommended. Enlarged prostate gland likely due to BPH however correlation with PSA recommended. Hepatomegaly. Findings consistent with fecal impaction. Assessment & Plan (1) Subdural hematoma, post-traumatic Assessment and Plan: Most Likely with Mass effect Left>Right Status: Acute Priority: High (2) ARF (acute renal failure) Status: Acute Priority: High (3) Dehydration Status: Acute Priority: Medium (4) Hyperkalemia Status: Acute Priority: Medium (5) UTI (urinary tract infection) Status: Acute Priority: High (6) Cachexia Status: Acute Priority: High (7) Poor appetite Status: Acute Priority: High (8) Fecal impaction Status: Acute Priority: Medium - Assessment and Plan (Free Text) Plan: Admit to telemetry Treat hyper kalemia with his Kayexalate, IV fluid, and dextrose with regular insulin IV IV Rocephin 1 g every 24 hours Remeron 15 mg p.o. daily for appetite and mood Lactulose 20 g twice daily Fleet enema every 4 hours x2 doses Neuro check every 4 hours Neurosurgery consult Urine and blood culture Tumor markers bracket AFP, PSA, TSH, CEA, CA 199 and Stool Occult Blood Anemia workup Reposition every 2 hours Dietary Consult Discussed in detail about plan of care with the daughter.
--- NOTE | 2018-05-19 16:42 | CP.PCM.CON ---
Past Patient History - Past Medical History & Family History Past Medical History?: No - Past Social History Smoking Status: Former Smoker - CARDIAC Hx Cardiac Disorders: Yes Hx Hypertension: Yes Other/Comment: Open heart 4 years ago - PULMONARY Hx Respiratory Disorders: No - NEUROLOGICAL Hx Neurological Disorder: No - HEENT Hx HEENT Problems: No - RENAL Hx Chronic Kidney Disease: No - ENDOCRINE/METABOLIC Hx Endocrine Disorders: No - HEMATOLOGICAL/ONCOLOGICAL Hx Blood Disorders: No - INTEGUMENTARY Hx Dermatological Problems: No - MUSCULOSKELETAL/RHEUMATOLOGICAL Hx Musculoskeletal Disorders: Yes Hx Arthritis: Yes Hx Falls: Yes - GASTROINTESTINAL Hx Gastrointestinal Disorders: No - GENITOURINARY/GYNECOLOGICAL Hx Genitourinary Disorders: No - PSYCHIATRIC Hx Psychophysiologic Disorder: No Hx Substance Use: No - SURGICAL HISTORY Hx Surgeries: Yes Hx Open Heart Surgery: Yes - ANESTHESIA Hx Anesthesia: Yes Hx Anesthesia Reactions: No Hx Malignant Hyperthermia: No Has any member of the family had a problem w/ anesthesia?: No Meds Home Medications: Home Medication List Medication Instructions Recorded Confirmed Type Heparin 5,000 units SC Q12 vial 05/19/18 Rx Lactulose [Enulose] 30 gm PO Q12 udc 05/19/18 Rx Allergies/Adverse Reactions: Allergies Allergy/AdvReac Type Severity Reaction Status Date / Time No Known Allergies Allergy Verified 05/18/18 17:38 - Medications Medications: Current Medications Ascorbic Acid (Vitamin C 500 Mg Tab) 500 mg PO HS [facility] Ferrous Sulfate (Feosol) 325 mg PO HS [facility] Folic Acid (Folic Acid) 1 mg PO DAILY [facility] Last Admin: 05/19/18 09:06 Dose: 1 mg Sodium Chloride (Sodium Chloride 0.9%) 1,000 mls @ 100 mls/hr IV .Q10H [facility] Stop: 05/20/18 06:31 Last Admin: 05/19/18 06:58 Dose: 100 mls/hr Ceftriaxone Sodium 1 gm/ (Sodium Chloride) 100 mls @ 100 mls/hr IVPB Q12@0900,2100 [facility]; Protocol Last Admin: 05/19/18 09:10 Dose: 100 mls/hr Lactulose (Enulose) 20 gm PO Q12 [facility] Last Admin: 05/19/18 09:05 Dose: 20 gm Levetiracetam (Keppra) 250 mg PO DAILY [facility] Last Admin: 05/19/18 09:09 Dose: 250 mg Mirtazapine (Remeron) 15 mg PO HS [facility] Tamsulosin HCl (Flomax) 0.4 mg PO HS [facility] Results - Vital Signs Recent Vital Signs: Last Vital Signs Temp 97.6 F 05/19/18 16:07 Pulse 115 H 05/19/18 16:07 Resp 18 05/19/18 16:07 BP 92/63 L 05/19/18 16:07 Pulse Ox 98 05/19/18 16:07 - Labs Result Diagrams: 05/19/18 06:15 05/19/18 06:15 Labs: Laboratory Results - last 24 hr 05/18/18 05/18/18 05/18/18 18:32 19:03 19:03 WBC 9.7 RBC 3.14 L Hgb 9.5 L Hct 29.0 L MCV 92.3 MCH 30.4 MCHC 32.9 L RDW 17.0 H Plt Count 172 MPV 6.8 L Neut % (Auto) 64.1 Lymph % (Auto) 25.3 [place] % (Auto) 9.7 Eos % (Auto) 0.6 Baso % (Auto) 0.3 Neut # (Auto) 6.2 Lymph # (Auto) 2.4 [place] # (Auto) 0.9 H Eos # (Auto) 0.1 Baso # (Auto) 0.0 PT INR APTT Sodium 138 Potassium 5.7 H Chloride 101 Carbon Dioxide 24 Anion Gap 19 BUN 74 H Creatinine 1.9 H Est GFR ( Amer) 41 Est GFR (Non-Af Amer) 34 Random Glucose 104 Calcium 9.4 Total Bilirubin 0.3 AST 26 ALT 16 L Alkaline Phosphatase 134 H Total Protein 7.9 Albumin 4.0 Globulin 3.8 Albumin/Globulin Ratio 1.0 Lipase 59 Vitamin B12 TSH 3rd Generation Urine Color Urine Clarity Urine pH Ur Specific [place] Urine Protein Urine Glucose (UA) Urine Ketones Urine Blood Urine Nitrate Urine Bilirubin Urine Urobilinogen Ur Leukocyte Esterase Urine RBC (Auto) Urine Microscopic WBC Ur Squamous Epith Cells Stool Occult Blood Negative 05/18/18 05/18/18 05/19/18 19:03 19:03 06:15 WBC 11.3 H RBC 3.25 L Hgb 9.8 L Hct 30.4 L MCV 93.6 MCH 30.2 MCHC 32.3 L RDW 16.9 H Plt Count 187 MPV Neut % (Auto) Lymph % (Auto) [place] % (Auto) Eos % (Auto) Baso % (Auto) Neut # (Auto) Lymph # (Auto) [place] # (Auto) Eos # (Auto) Baso # (Auto) PT 12.0 INR 1.1 APTT 35.5 Sodium Potassium Chloride Carbon Dioxide Anion Gap BUN Creatinine Est GFR ( Amer) Est GFR (Non-Af Amer) Random Glucose Calcium Total Bilirubin AST ALT Alkaline Phosphatase Total Protein Albumin Globulin Albumin/Globulin Ratio Lipase Vitamin B12 TSH 3rd Generation Urine Color [place] Urine Clarity Turbid Urine pH 6.0 Ur Specific [place] 1.018 Urine Protein 100 Urine Glucose (UA) Neg Urine Ketones Trace Urine Blood Small Urine Nitrate Negative Urine Bilirubin Negative Urine Urobilinogen 0.2-1.0 Ur Leukocyte Esterase Large Urine RBC (Auto) 18 H Urine Microscopic WBC 805 H Ur Squamous Epith Cells 1 Stool Occult Blood 05/19/18 06:15 WBC RBC Hgb Hct MCV MCH MCHC RDW Plt Count MPV Neut % (Auto) Lymph % (Auto) [place] % (Auto) Eos % (Auto) Baso % (Auto) Neut # (Auto) Lymph # (Auto) [place] # (Auto) Eos # (Auto) Baso # (Auto) PT INR APTT Sodium 136 Potassium 5.4 H Chloride 102 Carbon Dioxide 22 Anion Gap 17 BUN 74 H Creatinine 1.7 H Est GFR ( Amer) 46 Est GFR (Non-Af Amer) 38 Random Glucose 119 H Calcium 9.5 Total Bilirubin 0.3 AST 23 ALT 18 L Alkaline Phosphatase 142 H Total Protein 7.9 Albumin 4.1 Globulin 3.8 Albumin/Globulin Ratio 1.1 Lipase Vitamin B12 620 TSH 3rd Generation 2.22 Urine Color Urine Clarity Urine pH Ur Specific [place] Urine Protein Urine Glucose (UA) Urine Ketones Urine Blood Urine Nitrate Urine Bilirubin Urine Urobilinogen Ur Leukocyte Esterase Urine RBC (Auto) Urine Microscopic WBC Ur Squamous Epith Cells Stool Occult Blood
[2018-05-19 17:10] LABS: IRON 55 ug/dL (49-181)
[2018-05-19 17:19] LABS: % IRON SATURATION 24 % (20-55); TOTAL IRON BINDING CAPACITY 229 ug/dL (250-450)
--- NOTE | 2018-05-19 21:45 | CARD ---
APPROVED REPORT Date of service: 05/18/2018 EKG Measurement Heart [id number] <Conclusion> Normal sinus rhythm Low voltage QRS Possible Inferior infarct, age undetermined Abnormal ECG
[2018-05-20] MEDS: Sodium Chloride 0.9% 1,000 ML IV SCH (10:27)
--- NOTE | 2018-05-20 11:26 | CP.PCM.PN ---
Subjective - Date & Time of Evaluation Date of Evaluation: 05/20/18 Time of Evaluation: 11:25 - Subjective Subjective: full consult dicated noindication for surgery Objective - Vital Signs/Intake and Output Vital Signs (last 24 hours): Temp Pulse Resp BP Pulse Ox 97.6 F 92 H 20 118/78 100 05/20/18 08:56 05/20/18 08:56 05/20/18 08:56 05/20/18 08:56 05/20/18 08:56 - Medications Medications: Current Medications Ascorbic Acid (Vitamin C 500 Mg Tab) 500 mg PO [facility] Last Admin: 05/19/18 22:39 Dose: 500 mg Ferrous Sulfate (Feosol) 325 mg PO HS [facility] Last Admin: 05/19/18 22:37 Dose: 325 mg Folic Acid (Folic Acid) 1 mg PO DAILY [facility] Last Admin: 05/20/18 10:07 Dose: 1 mg Ceftriaxone Sodium 1 gm/ (Sodium Chloride) 100 mls @ 100 mls/hr IVPB Q12@0900,2100 [facility]; Protocol Last Admin: 05/20/18 10:07 Dose: 100 mls/hr Lactulose (Enulose) 20 gm PO Q12 [facility] Last Admin: 05/20/18 10:07 Dose: 20 gm Levetiracetam (Keppra) 250 mg PO DAILY [facility] Last Admin: 05/20/18 10:07 Dose: 250 mg Mirtazapine (Remeron) 15 mg PO [facility] Last Admin: 05/19/18 22:38 Dose: 15 mg Tamsulosin HCl (Flomax) 0.4 mg PO [facility] Last Admin: 05/19/18 22:38 Dose: 0.4 mg - Labs Labs: 05/19/18 06:15 05/19/18 06:15 PT 12.0 Seconds (9.8-13.1) 05/18/18 19:03 INR 1.1 05/18/18 19:03 APTT 35.5 Seconds (25.6-37.1) 05/18/18 19:03
[2018-05-20 18:12] LABS: BLOOD UREA NITROGEN 57 mg/dl (9-20); CALCIUM 8.6 mg/dL (8.4-10.2); GFR NON-AFRICAN AMERICAN 52
[2018-05-21 05:31] LABS: BASO % 0.2 % (0.0-2.0); EOS # 0.2 K/uL (0.0-0.7); EOS % 2.6 % (0.0-4.0); HEMOGLOBIN 8.4 g/dL (12.0-18.0); LYMPH # 1.1 K/uL (1.0-4.3); LYMPH % 16.2 % (20.0-40.0); MEAN CELL VOLUME 93.2 fl (80.0-94.0); MEAN CORPUSCULAR HEMOGLOBIN 30.8 pg (27.0-31.0); MEAN PLATELET VOLUME 7.5 fl (7.2-11.7); MONO # 0.8 K/uL (0.0-0.8); MONO % 11.7 % (0.0-10.0); NEUT # 4.7 K/uL (1.8-7.0); NEUT % 69.3 % (50.0-75.0); RBC 2.73 Mil/uL (4.40-5.90); RED CELL DISTRIBUTION WIDTH 17.4 % (11.5-14.5); WHITE BLOOD COUNT 6.8 K/uL (4.8-10.8)
--- NOTE | 2018-05-21 11:30 | CP.PCM.PN ---
Subjective - Date & Time of Evaluation Date of Evaluation: 05/21/18 Time of Evaluation: 11:30 - Subjective Subjective: ID Note- Pt. seen and examined today. no new events overnight. remains tired but does open his eyes when his name is called. Objective - Vital Signs/Intake and Output Vital Signs (last 24 hours): Temp Pulse Resp BP Pulse Ox 97.8 F 87 18 116/70 98 05/21/18 07:59 05/21/18 09:00 05/21/18 07:59 05/21/18 07:59 05/21/18 07:59 - Medications Medications: Current Medications Ascorbic Acid (Vitamin C 500 Mg Tab) 500 mg PO [facility] Last Admin: 05/20/18 21:05 Dose: 500 mg Ferrous Sulfate (Feosol) 325 mg PO [facility] Last Admin: 05/20/18 21:05 Dose: 325 mg Folic Acid (Folic Acid) 1 mg PO DAILY [facility] Last Admin: 05/21/18 09:54 Dose: 1 mg Ceftriaxone Sodium 1 gm/ (Sodium Chloride) 100 mls @ 100 mls/hr IVPB Q12@0900,2100 [facility]; Protocol Last Admin: 05/21/18 09:55 Dose: 100 mls/hr Lactulose (Enulose) 20 gm PO Q12 [facility] Last Admin: 05/21/18 09:54 Dose: 20 gm Levetiracetam (Keppra) 250 mg PO DAILY [facility] Last Admin: 05/21/18 09:54 Dose: 250 mg Mirtazapine (Remeron) 15 mg PO [facility] Last Admin: 05/20/18 21:05 Dose: 15 mg Tamsulosin HCl (Flomax) 0.4 mg PO [facility] Last Admin: 05/20/18 22:30 Dose: 0.4 mg - Labs Labs: - Additional Findings Additional findings: - Constitutional Appears: No Acute Distress, Cachectic, Chronically Ill - Eye Exam Eye Exam: EOMI, PERRL - ENT Exam Additional comments: dry oropharynx - Neck Exam Neck exam: Positive for: Full Rom - Respiratory Exam Respiratory Exam: Clear to Auscultation Bilateral, NORMAL BREATHING PATTERN - Cardiovascular Exam Cardiovascular Exam: RRR, +S1, +S2 - GI/Abdominal Exam GI & Abdominal Exam: Normal Bowel Sounds, Soft Additional comments: No distention + mild tenderness with palpation in the lower abdomen but less than before No guarding, no rebound - Extremities Exam Extremities exam: Positive for: normal inspection - Neurological Exam Neurological exam: drowsy but opens his eyes when his name is called Laboratory Results - last 72 hr 05/18/18 05/18/18 05/18/18 18:32 19:03 19:03 WBC 9.7 RBC 3.14 L Hgb 9.5 L Hct 29.0 L MCV 92.3 MCH 30.4 MCHC 32.9 L RDW 17.0 H Plt Count 172 MPV 6.8 L Neut % (Auto) 64.1 Lymph % (Auto) 25.3 [place] % (Auto) 9.7 Eos % (Auto) 0.6 Baso % (Auto) 0.3 Neut # (Auto) 6.2 Lymph # (Auto) 2.4 [place] # (Auto) 0.9 H Eos # (Auto) 0.1 Baso # (Auto) 0.0 Retic Count PT INR APTT Sodium 138 Potassium 5.7 H Chloride 101 Carbon Dioxide 24 Anion Gap 19 BUN 74 H Creatinine 1.9 H Est GFR ( Amer) 41 Est GFR (Non-Af Amer) 34 Random Glucose 104 Calcium 9.4 Iron TIBC % Saturation Ferritin Total Bilirubin 0.3 AST 26 ALT 16 L Alkaline Phosphatase 134 H Total Protein 7.9 Albumin 4.0 Globulin 3.8 Albumin/Globulin Ratio 1.0 Lipase 59 Alpha Fetoprotein Carcinoembryonic Ag CA 19-9 Antigen Prostate Specific Ag Vitamin B12 Folate TSH 3rd Generation Urine Color Urine Clarity Urine pH Ur Specific [place] Urine Protein Urine Glucose (UA) Urine Ketones Urine Blood Urine Nitrate Urine Bilirubin Urine Urobilinogen Ur Leukocyte Esterase Urine RBC (Auto) Urine Microscopic WBC Ur Squamous Epith Cells Stool Occult Blood Negative 05/18/18 05/18/18 05/19/18 19:03 19:03 06:15 WBC 11.3 H RBC 3.25 L Hgb 9.8 L Hct 30.4 L MCV 93.6 MCH 30.2 MCHC 32.3 L RDW 16.9 H Plt Count 187 MPV Neut % (Auto) Lymph % (Auto) [place] % (Auto) Eos % (Auto) Baso % (Auto) Neut # (Auto) Lymph # (Auto) [place] # (Auto) Eos # (Auto) Baso # (Auto) Retic Count PT 12.0 INR 1.1 APTT 35.5 Sodium Potassium Chloride Carbon Dioxide Anion Gap BUN Creatinine Est GFR ( Amer) Est GFR (Non-Af Amer) Random Glucose Calcium Iron TIBC % Saturation Ferritin Total Bilirubin AST ALT Alkaline Phosphatase Total Protein Albumin Globulin Albumin/Globulin Ratio Lipase Alpha Fetoprotein Carcinoembryonic Ag CA 19-9 Antigen Prostate Specific Ag Vitamin B12 Folate TSH 3rd Generation Urine Color [place] Urine Clarity Turbid Urine pH 6.0 Ur Specific [place] 1.018 Urine Protein 100 Urine Glucose (UA) Neg Urine Ketones Trace Urine Blood Small Urine Nitrate Negative Urine Bilirubin Negative Urine Urobilinogen 0.2-1.0 Ur Leukocyte Esterase Large Urine RBC (Auto) 18 H Urine Microscopic WBC 805 H Ur Squamous Epith Cells 1 Stool Occult Blood 05/19/18 05/19/18 05/19/18 06:15 16:42 16:42 WBC RBC Hgb Hct MCV MCH MCHC RDW Plt Count MPV Neut % (Auto) Lymph % (Auto) [place] % (Auto) Eos % (Auto) Baso % (Auto) Neut # (Auto) Lymph # (Auto) [place] # (Auto) Eos # (Auto) Baso # (Auto) Retic Count PT INR APTT Sodium 136 Potassium 5.4 H Chloride 102 Carbon Dioxide 22 Anion Gap 17 BUN 74 H Creatinine 1.7 H Est GFR ( Amer) 46 Est GFR (Non-Af Amer) 38 Random Glucose 119 H Calcium 9.5 Iron TIBC % Saturation Ferritin 371.0 Total Bilirubin 0.3 AST 23 ALT 18 L Alkaline Phosphatase 142 H Total Protein 7.9 Albumin 4.1 Globulin 3.8 Albumin/Globulin Ratio 1.1 Lipase Alpha Fetoprotein 1.5 Carcinoembryonic Ag 3.3 H CA 19-9 Antigen < 1.4 Prostate Specific Ag 1.54 Vitamin B12 620 Folate 18.0 TSH 3rd Generation 2.22 Urine Color Urine Clarity Urine pH Ur Specific [place] Urine Protein Urine Glucose (UA) Urine Ketones Urine Blood Urine Nitrate Urine Bilirubin Urine Urobilinogen Ur Leukocyte Esterase Urine RBC (Auto) Urine Microscopic WBC Ur Squamous Epith Cells Stool Occult Blood 05/19/18 05/19/18 05/20/18 16:42 16:42 16:37 WBC RBC Hgb Hct MCV MCH MCHC RDW Plt Count MPV Neut % (Auto) Lymph % (Auto) [place] % (Auto) Eos % (Auto) Baso % (Auto) Neut # (Auto) Lymph # (Auto) [place] # (Auto) Eos # (Auto) Baso # (Auto) Retic Count 1.8 H PT INR APTT Sodium 141 Potassium 4.5 Chloride 109 H Carbon Dioxide 19 L Anion Gap 18 BUN 57 H Creatinine 1.3 Est GFR ( Amer) > 60 Est GFR (Non-Af Amer) 52 Random Glucose 83 Calcium 8.6 Iron 55 TIBC 229 L % Saturation 24 Ferritin Total Bilirubin AST ALT Alkaline Phosphatase Total Protein Albumin Globulin Albumin/Globulin Ratio Lipase Alpha Fetoprotein Carcinoembryonic Ag CA 19-9 Antigen Prostate Specific Ag Vitamin B12 Folate TSH 3rd Generation Urine Color Urine Clarity Urine pH Ur Specific [place] Urine Protein Urine Glucose (UA) Urine Ketones Urine Blood Urine Nitrate Urine Bilirubin Urine Urobilinogen Ur Leukocyte Esterase Urine RBC (Auto) Urine Microscopic WBC Ur Squamous Epith Cells Stool Occult Blood 05/21/18 04:25 WBC 6.8 RBC 2.73 L Hgb 8.4 L Hct 25.4 L MCV 93.2 MCH 30.8 MCHC 33.0 RDW 17.4 H Plt Count 120 L D MPV 7.5 Neut % (Auto) 69.3 Lymph % (Auto) 16.2 L [place] % (Auto) 11.7 H Eos % (Auto) 2.6 Baso % (Auto) 0.2 Neut # (Auto) 4.7 Lymph # (Auto) 1.1 [place] # (Auto) 0.8 Eos # (Auto) 0.2 Baso # (Auto) 0.0 Retic Count PT INR APTT Sodium Potassium Chloride Carbon Dioxide Anion Gap BUN Creatinine Est GFR ( Amer) Est GFR (Non-Af Amer) Random Glucose Calcium Iron TIBC % Saturation Ferritin Total Bilirubin AST ALT Alkaline Phosphatase Total Protein Albumin Globulin Albumin/Globulin Ratio Lipase Alpha Fetoprotein Carcinoembryonic Ag CA 19-9 Antigen Prostate Specific Ag Vitamin B12 Folate TSH 3rd Generation Urine Color Urine Clarity Urine pH Ur Specific [place] Urine Protein Urine Glucose (UA) Urine Ketones Urine Blood Urine Nitrate Urine Bilirubin Urine Urobilinogen Ur Leukocyte Esterase Urine RBC (Auto) Urine Microscopic WBC Ur Squamous Epith Cells Stool Occult Blood Microbiology 05/19/18 14:30 Blood-Venous Blood Culture - Preliminary NO GROWTH AFTER 48 HOURS 05/19/18 14:30 Blood-Venous Blood Culture - Preliminary NO GROWTH AFTER 48 HOURS 05/19/18 09:46 Urine,Catheterized Urine Culture - Final Staphylococcus Aureus Assessment and Plan (1) Cachexia Status: Acute (2) Dehydration Status: Acute (3) Poor appetite Status: Acute (4) UTI (urinary tract infection) Status: Acute - Assessment and Plan (Free Text) Assessment: A/P- 87 year old male with CAD s/p CABG many years ago and arthritis presents with dehydration, poor appetite, weakness s/p falls in NH and subdural hematomas as per CT report . afebrile renal function has improved. minimal leukocytosis has resolved. admission UA- + for Le , neg for nitrates Urine cx from 05/19/2018- MSSA Blood cx- neg x 2 no UTI symptoms but as per CT report ? cystitis and enlarged prostate making prostatitis a possibility as well. afebrile contipation chronic. PLan- advise to continue with empiric ceftriaxone that was initiated by the admitting doctor for UTI day #3. the MSSA from urine cx could be contamination from skin letty, however, advise to start vancomycin (renal dose) and advise to check repeat UA and urine culture now. constipation management as per PMD.
[2018-05-21] MEDS ORDERED: Povidone Iodine Topical 10% Sol ONE (15:35)
[2018-05-21 17:08] LABS: URINE BACTERIA RARE (<OCC); URINE BILIRUBIN NEGATIVE (NEGATIVE); URINE BLOOD NEGATIVE (NEGATIVE); URINE CLARITY CLOUDY (Clear); URINE COLOR YELLOW (YELLOW); URINE GLUCOSE (UA) NEG (NEGATIVE); URINE LEUKOCYTE ESTERASE LARGE Leu/uL (Negative); URINE PROTEIN 30 mg/dL (NEGATIVE); URINE UROBILINOGEN 0.2-1.0 mg/dL (0.2-1.0)
[2018-05-22 05:32] LABS: HEMOGLOBIN 8.1 g/dL (12.0-18.0); MEAN CELL VOLUME 94.5 fl (80.0-94.0); MEAN CORPUSCULAR HEMOGLOBIN 30.8 pg (27.0-31.0); MEAN CORPUSCULAR HGB CONC 32.6 g/dL (33.0-37.0); RBC 2.64 Mil/uL (4.40-5.90); RED CELL DISTRIBUTION WIDTH 17.7 % (11.5-14.5)
[2018-05-22 06:06] LABS: BLOOD UREA NITROGEN 35 mg/dl (9-20); CALCIUM 8.6 mg/dL (8.4-10.2); GFR NON-AFRICAN AMERICAN > 60
--- NOTE | 2018-05-23 05:00 | CP.PCM.PN ---
Subjective - Date & Time of Evaluation Date of Evaluation: 05/20/18 Objective - Vital Signs/Intake and Output Vital Signs (last 24 hours): Temp Pulse Resp BP Pulse Ox 98.3 F 94 H 18 115/64 96 05/23/18 01:14 05/23/18 01:14 05/23/18 01:14 05/23/18 01:14 05/23/18 01:14 - Medications Medications: Current Medications Ascorbic Acid (Vitamin C 500 Mg Tab) 500 mg PO HS [facility] Last Admin: 05/22/18 21:30 Dose: 500 mg Ferrous Sulfate (Feosol) 325 mg PO HS [facility] Last Admin: 05/22/18 21:30 Dose: 325 mg Folic Acid (Folic Acid) 1 mg PO DAILY [facility] Last Admin: 05/22/18 09:04 Dose: 1 mg Ceftriaxone Sodium 1 gm/ (Sodium Chloride) 100 mls @ 100 mls/hr IVPB Q12@0900,2100 [facility]; Protocol Last Admin: 05/22/18 20:55 Dose: 100 mls/hr Vancomycin HCl 500 mg/ Sodium (Chloride) 100 mls @ 100 mls/hr IVPB Q12 [facility]; Protocol Last Admin: 05/22/18 22:00 Dose: 100 mls/hr Lactulose (Enulose) 20 gm PO Q12 [facility] Last Admin: 05/22/18 21:30 Dose: 20 gm Levetiracetam (Keppra) 250 mg PO DAILY [facility] Last Admin: 05/22/18 09:05 Dose: 250 mg Mirtazapine (Remeron Odt) 30 mg PO DAILY [facility] Mirtazapine (Remeron) 30 mg PO [facility] Last Admin: 05/22/18 23:30 Dose: 30 mg Tamsulosin HCl (Flomax) 0.4 mg PO HS [facility] Last Admin: 05/22/18 21:30 Dose: 0.4 mg - Labs Labs: 05/22/18 04:20 05/22/18 04:20 PT 12.0 Seconds (9.8-13.1) 05/18/18 19:03 INR 1.1 05/18/18 19:03 APTT 35.5 Seconds (25.6-37.1) 05/18/18 19:03 Assessment and Plan (1) Subdural hematoma, post-traumatic Status: Acute (2) ARF (acute renal failure) Status: Acute (3) Dehydration Status: Acute (4) Hyperkalemia Status: Acute (5) UTI (urinary tract infection) Status: Acute (6) Cachexia Status: Acute (7) Poor appetite Status: Acute
--- NOTE | 2018-05-23 05:01 | CP.PCM.PN ---
Subjective - Date & Time of Evaluation Date of Evaluation: 05/21/18 Objective - Vital Signs/Intake and Output Vital Signs (last 24 hours): Temp Pulse Resp BP Pulse Ox 98.3 F 94 H 18 115/64 96 05/23/18 01:14 05/23/18 01:14 05/23/18 01:14 05/23/18 01:14 05/23/18 01:14 - Medications Medications: Current Medications Ascorbic Acid (Vitamin C 500 Mg Tab) 500 mg PO HS [facility] Last Admin: 05/22/18 21:30 Dose: 500 mg Ferrous Sulfate (Feosol) 325 mg PO HS [facility] Last Admin: 05/22/18 21:30 Dose: 325 mg Folic Acid (Folic Acid) 1 mg PO DAILY [facility] Last Admin: 05/22/18 09:04 Dose: 1 mg Ceftriaxone Sodium 1 gm/ (Sodium Chloride) 100 mls @ 100 mls/hr IVPB Q12@0900,2100 [facility]; Protocol Last Admin: 05/22/18 20:55 Dose: 100 mls/hr Vancomycin HCl 500 mg/ Sodium (Chloride) 100 mls @ 100 mls/hr IVPB Q12 [facility]; Protocol Last Admin: 05/22/18 22:00 Dose: 100 mls/hr Lactulose (Enulose) 20 gm PO Q12 [facility] Last Admin: 05/22/18 21:30 Dose: 20 gm Levetiracetam (Keppra) 250 mg PO DAILY [facility] Last Admin: 05/22/18 09:05 Dose: 250 mg Mirtazapine (Remeron Odt) 30 mg PO DAILY [facility] Mirtazapine (Remeron) 30 mg PO [facility] Last Admin: 05/22/18 23:30 Dose: 30 mg Tamsulosin HCl (Flomax) 0.4 mg PO HS [facility] Last Admin: 05/22/18 21:30 Dose: 0.4 mg - Labs Labs: 05/22/18 04:20 05/22/18 04:20 PT 12.0 Seconds (9.8-13.1) 05/18/18 19:03 INR 1.1 05/18/18 19:03 APTT 35.5 Seconds (25.6-37.1) 05/18/18 19:03 Assessment and Plan (1) Subdural hematoma, post-traumatic Status: Acute (2) ARF (acute renal failure) Status: Acute (3) Dehydration Status: Acute (4) Hyperkalemia Status: Acute (5) UTI (urinary tract infection) Status: Acute (6) Cachexia Status: Acute (7) Poor appetite Status: Acute
--- NOTE | 2018-05-23 05:01 | CP.PCM.PN ---
Subjective - Date & Time of Evaluation Date of Evaluation: 05/22/18 Objective - Vital Signs/Intake and Output Vital Signs (last 24 hours): Temp Pulse Resp BP Pulse Ox 98.3 F 94 H 18 115/64 96 05/23/18 01:14 05/23/18 01:14 05/23/18 01:14 05/23/18 01:14 05/23/18 01:14 - Medications Medications: Current Medications Ascorbic Acid (Vitamin C 500 Mg Tab) 500 mg PO [facility] Last Admin: 05/22/18 21:30 Dose: 500 mg Ferrous Sulfate (Feosol) 325 mg PO HS [facility] Last Admin: 05/22/18 21:30 Dose: 325 mg Folic Acid (Folic Acid) 1 mg PO DAILY [facility] Last Admin: 05/22/18 09:04 Dose: 1 mg Ceftriaxone Sodium 1 gm/ (Sodium Chloride) 100 mls @ 100 mls/hr IVPB Q12@0900,2100 [facility]; Protocol Last Admin: 05/22/18 20:55 Dose: 100 mls/hr Vancomycin HCl 500 mg/ Sodium (Chloride) 100 mls @ 100 mls/hr IVPB Q12 [facility]; Protocol Last Admin: 05/22/18 22:00 Dose: 100 mls/hr Lactulose (Enulose) 20 gm PO Q12 [facility] Last Admin: 05/22/18 21:30 Dose: 20 gm Levetiracetam (Keppra) 250 mg PO DAILY [facility] Last Admin: 05/22/18 09:05 Dose: 250 mg Mirtazapine (Remeron Odt) 30 mg PO [facility]ILY [facility] Mirtazapine (Remeron) 30 mg PO [facility] Last Admin: 05/22/18 23:30 Dose: 30 mg Tamsulosin HCl (Flomax) 0.4 mg PO HS [facility] Last Admin: 05/22/18 21:30 Dose: 0.4 mg - Labs Labs: 05/22/18 04:20 05/22/18 04:20 PT 12.0 Seconds (9.8-13.1) 05/18/18 19:03 INR 1.1 05/18/18 19:03 APTT 35.5 Seconds (25.6-37.1) 05/18/18 19:03 Assessment and Plan (1) Subdural hematoma, post-traumatic Status: Acute (2) ARF (acute renal failure) Status: Acute (3) Dehydration Status: Acute (4) Hyperkalemia Status: Acute (5) UTI (urinary tract infection) Status: Acute (6) Cachexia Status: Acute (7) Poor appetite Status: Acute
--- NOTE | 2018-05-23 08:26 | CON ---
DATE: 05/20/2018 HISTORY OF PRESENT ILLNESS: This is an 87-year-old white male who is, by history, brought to the emergency room on 05/18/2018 by his daughter for evaluation for weight loss over the last few months. He was at a long-term facility in [place]. He fell in April, sustained injuries to his hip, the right side of his head, right hand, right eye. The patient has now episode. His daughter felt he was not receiving the best of care. He had decreased appetite, loss of weight and he is becoming more more confused. According to the daughter, the patient feels constipated and is feeling pain everywhere. I am unable to obtain any history from the patient directly and history was obtained through the medical record. He had a previous hip surgery and cardiac bypass. He has no other significant findings on review of systems. PHYSICAL EXAMINATION: Currently his examination finds he is awake, alert, oriented to person, and place, not to time. His pupils are equal. His motor exam is 5/5. His sensory exam is intact. Reflex 1/4. His face is symmetric. His tongue is midline. He has severe temporal wasting and looks fairly cachectic in general. DIAGNOSTIC DATA: He has a CT scan of the head that shows bilateral chronic subdural effusion. My review of the study finds that they are fairly symmetric, perhaps the left is greater than right minimally. There is no mass effect from and he has a very large sulci consistent with this being more atrophy related than actual pressure related. At this point, it should be noted his white count is mildly elevated. He has elevated BUN and creatinine and urinalysis consistent with UTI. IMPRESSION: It is my impression that this gentleman does not need to have the subdural collections evacuated as they are more atrophy related than secondary to mass effect. I think that if we drain them, his brain would not expand and they would only recur. If you have any questions, do not hesitate to contact me. Tha Corral MD
[2018-05-23] MEDS: Mirtazapine 30 MG ODT PO SCH (09:32)
[2018-05-24 05:16] LABS: HEMOGLOBIN 8.2 g/dL (12.0-18.0); MEAN CORPUSCULAR HEMOGLOBIN 30.6 pg (27.0-31.0); MEAN CORPUSCULAR HGB CONC 32.9 g/dL (33.0-37.0); RBC 2.66 Mil/uL (4.40-5.90); RED CELL DISTRIBUTION WIDTH 17.6 % (11.5-14.5); WHITE BLOOD COUNT 8.5 K/uL (4.8-10.8)
[2018-05-24 05:40] LABS: ALB/GLOB RATIO 0.9 (1.0-2.1); ALBUMIN 2.9 g/dL (3.5-5.0); ALT/SGPT 23 U/L (21-72); AST/SGOT 24 U/L (17-59); BLOOD UREA NITROGEN 25 mg/dl (9-20); CALCIUM 8.7 mg/dL (8.4-10.2); GFR NON-AFRICAN AMERICAN > 60
[2018-05-24] MEDS: Mirtazapine 30 MG ODT PO SCH (08:34)
--- NOTE | 2018-05-24 10:37 | CP.PCM.PN ---
Subjective - Date & Time of Evaluation Date of Evaluation: 05/24/18 Time of Evaluation: 10:36 - Subjective Subjective: ID Note- Patient seen and examined today. remains in bed and in NAD. Objective - Vital Signs/Intake and Output Vital Signs (last 24 hours): Temp Pulse Resp BP Pulse Ox 98.3 F 81 20 114/74 94 L 05/24/18 08:43 05/24/18 08:43 05/24/18 08:43 05/24/18 08:43 05/24/18 08:43 - Medications Medications: Current Medications Ascorbic Acid (Vitamin C 500 Mg Tab) 500 mg PO [facility] Last Admin: 05/23/18 22:35 Dose: 500 mg Ferrous Sulfate (Feosol) 325 mg PO [facility] Last Admin: 05/23/18 22:35 Dose: 325 mg Folic Acid (Folic Acid) 1 mg PO DAILY [facility] Last Admin: 05/24/18 08:34 Dose: 1 mg Vancomycin HCl 500 mg/ Sodium (Chloride) 100 mls @ 100 mls/hr IVPB Q12 [facility]; Protocol Last Admin: 05/24/18 10:20 Dose: 100 mls/hr Lactulose (Enulose) 20 gm PO Q12 [facility] Last Admin: 05/24/18 08:33 Dose: 20 gm Levetiracetam (Keppra) 250 mg PO DAILY [facility] Last Admin: 05/24/18 08:34 Dose: 250 mg Mirtazapine (Remeron Odt) 30 mg PO DAILY [facility] Last Admin: 05/24/18 08:34 Dose: 30 mg Mirtazapine (Remeron) 30 mg PO [facility] Last Admin: 05/23/18 22:47 Dose: 30 mg Tamsulosin HCl (Flomax) 0.4 mg PO [facility] Last Admin: 05/23/18 22:35 Dose: 0.4 mg - Labs Labs: - Additional Findings Additional findings: - Constitutional Appears: No Acute Distress, Cachectic, Chronically Ill - Eye Exam Eye Exam: EOMI, PERRL - ENT Exam Additional comments: dry oropharynx - Neck Exam Neck exam: Positive for: Full Rom - Respiratory Exam Respiratory Exam: Clear to Auscultation Bilateral, NORMAL BREATHING PATTERN - Cardiovascular Exam Cardiovascular Exam: RRR, +S1, +S2 - GI/Abdominal Exam GI & Abdominal Exam: Normal Bowel Sounds, Soft Additional comments: No distention + mild tenderness with palpation in the lower abdomen but less than before No guarding, no rebound - Extremities Exam Extremities exam: Positive for: normal inspection - Neurological Exam Neurological exam: drowsy but opens his eyes when his name is called Laboratory Results - last 72 hr 05/21/18 05/22/18 05/22/18 16:55 04:20 04:20 WBC 7.0 RBC 2.64 L Hgb 8.1 L Hct 24.9 L MCV 94.5 H MCH 30.8 MCHC 32.6 L RDW 17.7 H Plt Count 119 L Sodium 140 Potassium 3.9 Chloride 114 H Carbon Dioxide 20 L Anion Gap 10 BUN 35 H Creatinine 1.0 Est GFR ( Amer) > 60 Est GFR (Non-Af Amer) > 60 POC Glucose (mg/dL) Random Glucose 83 Calcium 8.6 Phosphorus Magnesium Total Bilirubin AST ALT Alkaline Phosphatase Total Protein Albumin Globulin Albumin/Globulin Ratio Urine Color Yellow Urine Clarity Cloudy Urine pH 6.0 Ur Specific [place] 1.016 Urine Protein 30 Urine Glucose (UA) Neg Urine Ketones Negative Urine Blood Negative Urine Nitrate Negative Urine Bilirubin Negative Urine Urobilinogen 0.2-1.0 Ur Leukocyte Esterase Large Urine RBC (Auto) 4 H Urine Microscopic WBC 175 H Urine Bacteria Rare Vancomycin Trough 05/23/18 05/23/18 05/23/18 05:01 05:10 11:12 WBC RBC Hgb Hct MCV MCH MCHC RDW Plt Count Sodium Potassium Chloride Carbon Dioxide Anion Gap BUN Creatinine Est GFR ( Amer) Est GFR (Non-Af Amer) POC Glucose (mg/dL) 83 101 Random Glucose Calcium Phosphorus Magnesium Total Bilirubin AST ALT Alkaline Phosphatase Total Protein Albumin Globulin Albumin/Globulin Ratio Urine Color Urine Clarity Urine pH Ur Specific [place] Urine Protein Urine Glucose (UA) Urine Ketones Urine Blood Urine Nitrate Urine Bilirubin Urine Urobilinogen Ur Leukocyte Esterase Urine RBC (Auto) Urine Microscopic WBC Urine Bacteria Vancomycin Trough 5.9 05/23/18 05/23/18 05/24/18 16:41 21:47 04:25 WBC 8.5 RBC 2.66 L Hgb 8.2 L Hct 24.7 L MCV 93.0 MCH 30.6 MCHC 32.9 L RDW 17.6 H Plt Count 125 L Sodium Potassium Chloride Carbon Dioxide Anion Gap BUN Creatinine Est GFR ( Amer) Est GFR (Non-Af Amer) POC Glucose (mg/dL) 90 131 H Random Glucose Calcium Phosphorus Magnesium Total Bilirubin AST ALT Alkaline Phosphatase Total Protein Albumin Globulin Albumin/Globulin Ratio Urine Color Urine Clarity Urine pH Ur Specific [place] Urine Protein Urine Glucose (UA) Urine Ketones Urine Blood Urine Nitrate Urine Bilirubin Urine Urobilinogen Ur Leukocyte Esterase Urine RBC (Auto) Urine Microscopic WBC Urine Bacteria Vancomycin Trough 05/24/18 05/24/18 04:25 05:25 WBC RBC Hgb Hct MCV MCH MCHC RDW Plt Count Sodium 140 Potassium 4.0 Chloride 107 Carbon Dioxide 21 L Anion Gap 16 BUN 25 H Creatinine 1.0 Est GFR ( Amer) > 60 Est GFR (Non-Af Amer) > 60 POC Glucose (mg/dL) 88 Random Glucose 92 Calcium 8.7 Phosphorus 2.3 L Magnesium 1.9 Total Bilirubin 0.2 AST 24 ALT 23 Alkaline Phosphatase 129 H Total Protein 6.3 Albumin 2.9 L D Globulin 3.3 Albumin/Globulin Ratio 0.9 L Urine Color Urine Clarity Urine pH Ur Specific [place] Urine Protein Urine Glucose (UA) Urine Ketones Urine Blood Urine Nitrate Urine Bilirubin Urine Urobilinogen Ur Leukocyte Esterase Urine RBC (Auto) Urine Microscopic WBC Urine Bacteria Vancomycin Trough Microbiology 05/19/18 14:30 Blood-Venous Blood Culture - Preliminary NO GROWTH AFTER 4 DAYS 05/19/18 14:30 Blood-Venous Blood Culture - Preliminary NO GROWTH AFTER 4 DAYS 05/21/18 16:55 Urine,Catheterized Urine Culture - Final Staphylococcus Aureus 05/19/18 09:46 Urine,Catheterized Urine Culture - Final Staphylococcus Aureus Assessment and Plan (1) Cachexia Status: Acute (2) Dehydration Status: Acute (3) Poor appetite Status: Acute (4) UTI (urinary tract infection) Status: Acute - Assessment and Plan (Free Text) Assessment: A/P- 87 year old male with CAD s/p CABG many years ago and arthritis presents with dehydration, poor appetite, weakness s/p falls in NH and subdural hematomas as per CT report . afebrile renal function has improved. minimal leukocytosis has resolved. admission UA- + for Le , neg for nitrates Urine cx from 05/19/2018- MSSA Blood cx- neg x 2 repeat urine cx ( straight cath -MSSA no UTI symptoms but as per CT report ? cystitis and enlarged prostate making prostatitis a possibility as well. afebrile contipation chronic. PLan- has completed 5 days of IV empiric ceftriaxone. advise to d/c ceftriaxone now. continue with IV vanco for MSSA bacteurea. keep vanco trough <15. advise total of 7 days of vanco. day #4 today. constipation management as per PMD.
--- NOTE | 2018-05-24 14:15 | CP.PCM.PCO ---
Assessment/Plan - Assessment and Plan (Free Text) Plan: Patient seen at bedside. Sleepy but arousable. Denies pain at this time. Family at bedside, long discussion about plan of care for patient. Patient verbalizing wishes to go home and be in his own bed. Poor appetite, just drinking juice and supplements. patient is hospice appropriate, discussed with Daughter Audra who agrees. Will put in a hospice eval, All of this discussed with Dr Rodriguez who agrees.
[2018-05-24 16:26] VITALS: RESP 18
[2018-05-24 19:13] VITALS: BP 120/69; PULSE 101; TEMP 99.9; O2SAT 94
--- NOTE | 2018-05-25 00:10 | CP.PCM.PN ---
Subjective - Date & Time of Evaluation Date of Evaluation: 05/23/18 Time of Evaluation: 16:05 Objective - Vital Signs/Intake and Output Vital Signs (last 24 hours): Temp Pulse Resp BP Pulse Ox 99.9 F H 101 H 18 120/69 94 L 05/24/18 19:13 05/24/18 19:13 05/24/18 19:13 05/24/18 19:13 05/24/18 19:13 - Labs Labs: 05/24/18 04:25 05/24/18 04:25 PT 12.0 Seconds (9.8-13.1) 05/18/18 19:03 INR 1.1 05/18/18 19:03 APTT 35.5 Seconds (25.6-37.1) 05/18/18 19:03 Assessment and Plan (1) Subdural hematoma, post-traumatic Status: Acute (2) ARF (acute renal failure) Status: Acute (3) Dehydration Status: Acute (4) Hyperkalemia Status: Acute (5) UTI (urinary tract infection) Status: Acute (6) Cachexia Status: Acute (7) Poor appetite Status: Acute (8) Fecal impaction Status: Acute
--- NOTE | 2018-05-25 00:12 | CP.PCM.DIS ---
Provider - Provider Date of Admission: 05/18/18 22:09 Attending physician: Del Rodriguez MD Consults: 05/19/18 02:23 Wound Care [Nursing Referral for Wound Care] Routine Comment: Physician Instructions: Reason For Exam: sacral redness 05/19/18 16:20 Infectious Disease Consult Routine Comment: Consulting Provider: Matilde Toscano Consulting Physician: Matilde Toscano Reason for Consult: AMS, UTI 05/19/18 16:22 Neuro Surgery Consult Routine Comment: Consulting Provider: Sumeet Neves Consulting Physician: Sumeet Neves Reason for Consult: B/L SDH with Mass effect 05/22/18 04:41 Wound Care [Nursing Referral for Wound Care] Routine Comment: Physician Instructions: area Reason For Exam: re eval sacral redness with opening on the coccyx Time Spent in preparation of Discharge (in minutes): 25 Diagnosis - Discharge Diagnosis (1) Subdural hematoma, post-traumatic Status: Acute Priority: High (2) ARF (acute renal failure) Status: Acute Priority: High (3) Dehydration Status: Acute Priority: Medium (4) Hyperkalemia Status: Acute Priority: Medium (5) UTI (urinary tract infection) Status: Acute Priority: High (6) Cachexia Status: Acute Priority: High (7) Poor appetite Status: Acute Priority: High (8) Fecal impaction Status: Acute Priority: Medium (9) Hospice care Status: Acute Priority: Medium Hospital Course - Lab Results Lab Results: Micro Results 05/19/18 14:30 Blood-Venous Blood Culture - Final NO GROWTH AFTER 5 DAYS 05/19/18 14:30 Blood-Venous Gram Stain - Final TEST NOT PERFORMED 05/19/18 14:30 Blood-Venous Blood Culture - Final NO GROWTH AFTER 5 DAYS 05/19/18 14:30 Blood-Venous Gram Stain - Final TEST NOT PERFORMED 05/21/18 16:55 Urine,Catheterized Urine Culture - Final Staphylococcus Aureus 05/19/18 09:46 Urine,Catheterized Urine Culture - Final Staphylococcus Aureus Most Recent Lab Values WBC 8.5 K/uL (4.8-10.8) 05/24/18 04:25 RBC 2.66 Mil/uL (4.40-5.90) L 05/24/18 04:25 Hgb 8.2 g/dL (12.0-18.0) L 05/24/18 04:25 Hct 24.7 % (35.0-51.0) L 05/24/18 04:25 MCV 93.0 fl (80.0-94.0) 05/24/18 04:25 MCH 30.6 pg (27.0-31.0) 05/24/18 04:25 MCHC 32.9 g/dL (33.0-37.0) L 05/24/18 04:25 RDW 17.6 % (11.5-14.5) H 05/24/18 04:25 Plt Count 125 K/uL (130-400) L 05/24/18 04:25 MPV 7.5 fl (7.2-11.7) 05/21/18 04:25 Neut % (Auto) 69.3 % (50.0-75.0) 05/21/18 04:25 Lymph % (Auto) 16.2 % (20.0-40.0) L 05/21/18 04:25 [place] % (Auto) 11.7 % (0.0-10.0) H 05/21/18 04:25 Eos % (Auto) 2.6 % (0.0-4.0) 05/21/18 04:25 Baso % (Auto) 0.2 % (0.0-2.0) 05/21/18 04:25 Neut # (Auto) 4.7 K/uL (1.8-7.0) 05/21/18 04:25 Lymph # (Auto) 1.1 K/uL (1.0-4.3) 05/21/18 04:25 [place] # (Auto) 0.8 K/uL (0.0-0.8) 05/21/18 04:25 Eos # (Auto) 0.2 K/uL (0.0-0.7) 05/21/18 04:25 Baso # (Auto) 0.0 K/uL (0.0-0.2) 05/21/18 04:25 Retic Count 1.8 % (0.5-1.5) H 05/19/18 16:42 PT 12.0 Seconds (9.8-13.1) 05/18/18 19:03 INR 1.1 05/18/18 19:03 APTT 35.5 Seconds (25.6-37.1) 05/18/18 19:03 Sodium 140 mmol/l (132-148) 05/24/18 04:25 Potassium 4.0 MMOL/L (3.6-5.0) 05/24/18 04:25 Chloride 107 mmol/L (98-107) 05/24/18 04:25 Carbon Dioxide 21 mmol/L (22-30) L 05/24/18 04:25 Anion Gap 16 (10-20) 05/24/18 04:25 BUN 25 mg/dl (9-20) H 05/24/18 04:25 Creatinine 1.0 mg/dl (0.8-1.5) 05/24/18 04:25 Est GFR ( Amer) > 60 05/24/18 04:25 Est GFR (Non-Af Amer) > 60 05/24/18 04:25 POC Glucose (mg/dL) 109 mg/dL (65-110) 05/24/18 21:27 Random Glucose 92 mg/dL (75-110) 05/24/18 04:25 Calcium 8.7 mg/dL (8.4-10.2) 05/24/18 04:25 Phosphorus 2.3 mg/dl (2.5-4.5) L 05/24/18 04:25 Magnesium 1.9 MG/DL (1.6-2.3) 05/24/18 04:25 Iron 55 ug/dL (49-181) 05/19/18 16:42 TIBC 229 ug/dL (250-450) L 05/19/18 16:42 % Saturation 24 % (20-55) 05/19/18 16:42 Ferritin 371.0 ng/mL 05/19/18 16:42 Total Bilirubin 0.2 mg/dl (0.2-1.3) 05/24/18 04:25 AST 24 U/L (17-59) 05/24/18 04:25 ALT 23 U/L (21-72) 05/24/18 04:25 Alkaline Phosphatase 129 U/L (38-126) H 05/24/18 04:25 Total Protein 6.3 G/DL (6.3-8.2) 05/24/18 04:25 Albumin 2.9 g/dL (3.5-5.0) L D 05/24/18 04:25 Globulin 3.3 gm/dL (2.2-3.9) 05/24/18 04:25 Albumin/Globulin Ratio 0.9 (1.0-2.1) L 05/24/18 04:25 Lipase 59 U/L (23-300) 05/18/18 19:03 Alpha Fetoprotein 1.5 ng/mL (0.0-7.5) 05/19/18 16:42 Carcinoembryonic Ag 3.3 ng/mL (0-3.0) H 05/19/18 16:42 CA 19-9 Antigen < 1.4 U/mL (0-37) 05/19/18 16:42 Prostate Specific Ag 1.54 ng/mL (0.00-4.0) 05/19/18 16:42 Vitamin B12 620 pg/mL (239-931) 05/19/18 06:15 Folate 18.0 ng/mL 05/19/18 16:42 TSH 3rd Generation 2.22 mIU/ML (0.46-4.68) 05/19/18 06:15 Urine Color Yellow (YELLOW) 05/21/18 16:55 Urine Clarity Cloudy (Clear) 05/21/18 16:55 Urine pH 6.0 (5.0-8.0) 05/21/18 16:55 Ur Specific [place] 1.016 (1.003-1.030) 05/21/18 16:55 Urine Protein 30 mg/dL (NEGATIVE) 05/21/18 16:55 Urine Glucose (UA) Neg mg/dL (NEGATIVE) 05/21/18 16:55 Urine Ketones Negative mg/dL (NEGATIVE) 05/21/18 16:55 Urine Blood Negative (NEGATIVE) 05/21/18 16:55 Urine Nitrate Negative (NEGATIVE) 05/21/18 16:55 Urine Bilirubin Negative (NEGATIVE) 05/21/18 16:55 Urine Urobilinogen 0.2-1.0 mg/dL (0.2-1.0) 05/21/18 16:55 Ur Leukocyte Esterase Large [place]/uL (Negative) 05/21/18 16:55 Urine RBC (Auto) 4 /hpf (0-3) H 05/21/18 16:55 Urine Microscopic WBC 175 /hpf (0-5) H 05/21/18 16:55 Ur Squamous Epith Cells 1 /hpf (0-5) 05/18/18 19:03 Urine Bacteria Rare (<OCC) 05/21/18 16:55 Stool Occult Blood Negative (NEGATIVE) 05/18/18 18:32 Vancomycin Trough 5.9 ug/mL (5.0-10.0) 05/23/18 05:10 Discharge Exam - Head Exam Head Exam: ATRAUMATIC, NORMAL INSPECTION, NORMOCEPHALIC Discharge Plan - Follow Up Plan Condition: STABLE Disposition: HOSPICE - HOME Instructions: Dehydration, Adult (DC), Urinary Tract Infection, Adult (DC), Acute Kidney Failure (DC) Additional Instructions: patient going home on hospice Referrals: Del Rodriguez MD [Staff Provider] -
== END 2018-05-24 22:45 | disposition hospice, home (50) | DRG 83 ==
LOC: H.ER 17:30 → H.ERHOLD 22:09 → H.TEL 23:30
PROVIDERS: ADMIT Internal Medicine; ATTEND Internal Medicine
DX: S06.5X9A Traumatic subdural hemorrhage with loss of consciousness of unspecified duration, initial encounter (principal); N17.9 Acute kidney failure, unspecified; R64 Cachexia; Z68.1 Body mass index [BMI] 19.9 or less, adult; K56.41 Fecal impaction; E86.0 Dehydration; N28.1 Cyst of kidney, acquired; N40.0 Benign prostatic hyperplasia without lower urinary tract symptoms; Z95.1 Presence of aortocoronary bypass graft; I25.10 Atherosclerotic heart disease of native coronary artery without angina pectoris; Z91.81 History of falling; Z87.891 Personal history of nicotine dependence; G89.29 Other chronic pain; M19.90 Unspecified osteoarthritis, unspecified site; I10 Essential (primary) hypertension; E87.5 Hyperkalemia; R63.0 Anorexia; N30.90 Cystitis, unspecified without hematuria; B95.61 Methicillin susceptible Staphylococcus aureus infection as the cause of diseases classified elsewhere; W19.XXXA Unspecified fall, initial encounter; Y92.29 Other specified public building as the place of occurrence of the external cause